=== PATIENT | male | born 1985 | race Caucasian/White ===

== ENCOUNTER 2020-09-16 08:05 | Inpatient (IN) | payer OTHER, MEDICAID ==
[2020-09-16] VITALS (12 sets, daily range): BP systolic 84–115; BP diastolic 46–88
[~2020-09-16] VITALS: Ht 190.5 cm; Wt 106.0 kg
[~2020-09-16 08:05] MED LIST: calcium chloride 100 MG/1 ML inj IV ONE; sodium bicarbonate (8.4%) 1 mEq/ml syringe ONE
[2020-09-16] MEDS ORDERED: NORepinephrine inj. 8 MG in dextrose 5%-water 242 ML IV SCH (08:20)
[2020-09-16 08:37] LABS: ABG BASE EXCESS -12.6 mmol/L (-2.0-2.0); ABG HCO3 20.9 mmol/L (22.0-26.0); ABG OXYGEN SATURATION 96.4 % (94-97); ABG PCO2 (T) 94.6 mmHg (35.0-48.0); ABG PO2 (T) 124.4 mmHg (75.0-100.0); FCOHb 0.2 % (0.0-3.9); FMetHb 0.1 % (0.0-1.5); FO2Hb 96.1 % (94-97); RESPIRATORY RATE 18 b/min; TIDAL VOLUME 450 mL; TOTAL HEMOGLOBIN 12.8 G/dl (14.0-18.0)
[2020-09-16] MEDS ORDERED: NOREPINEPHRINE BITARTRATE/D5W 250 ML IV SCH (08:40)
[2020-09-16 08:41] LABS: BASOPHILS % (AUTO) 0.5 % (0-1); EOSINOPHILS # (AUTO) 0.1 X10'3 (0-0.9); EOSINOPHILS % (AUTO) 1.5 % (0-6); HEMATOCRIT 37.6 % (42.0-52.0); HEMOGLOBIN 12.5 g/dl (14.0-17.9); LYMPHOCYTES # (AUTO) 2.7 X10'3 (1.1-4.8); MEAN CORPUSCULAR HEMOGLOBIN 32.2 PG (27.0-31.0); MEAN CORPUSCULAR HGB CONC 33.1 g/dL (33.0-36.5); MEAN CORPUSCULAR VOLUME 97.1 FL (78-98); MEAN PLATELET VOLUME 6.4 FL (7.4-10.4); MONOCYTES # (AUTO) 0.3 X10'3 (0-0.9); MONOCYTES % (AUTO) 5.2 % (2-12); NEUTROPHILS # (AUTO) 2.9 X10'3 (1.8-7.7); NEUTROPHILS % (AUTO) 47.8 % (42-75); PLATELET COUNT 367 X10'3 (140-440); RED BLOOD COUNT 3.87 X10'6 (4.70-6.10); RED CELL DISTRIBUTION WIDTH 13.7 % (11.5-14.5)
[2020-09-16 09:07] LABS: ALANINE AMINOTRANSFERASE 77 U/L (12-78); ALBUMIN 3.2 G/DL (3.4-5.0); ALBUMIN/GLOBULIN RATIO 1.1 (1.1-1.5); ALKALINE PHOSPHATASE 51 IU/L (46-116); ANION GAP 13 (8-16); ASPARTATE AMINO TRANSFERASE 76 U/L (10-37); BILIRUBIN,TOTAL 0.3 MG/DL (0.1-1.0); BLOOD UREA NITROGEN 14 MG/DL (7-18); BUN/CREATININE RATIO 6.8 (5.4-32.0); CALCIUM 8.3 MG/DL (8.5-10.1); CHLORIDE 104 MMOL/L (99-107); CREATININE 2.07 MG/DL (0.60-1.10); MAGNESIUM 3.1 MG/DL (1.5-2.4); POTASSIUM 3.6 MMOL/L (3.5-5.1); SODIUM 144 MMOL/L (135-145); TOTAL CARBON DIOXIDE 27.2 MMOL/L (24-32); TOTAL PROTEIN 6.1 G/DL (6.4-8.2); eGFR 37 ML/MIN
[2020-09-16 09:08] LABS: GLUCOSE 453 MG/DL (70-104)
[2020-09-16] MEDS ORDERED: normal saline 1000ML IV soln IVB ONE ×2 (09:15→09:25)
[2020-09-16] MEDS ORDERED: magnesium hydroxide 30ml (MOM) UD suspension PO PRN (09:25)
[2020-09-16] MEDS ORDERED: midazolam 100mg in NS 100ml 100 ML IV PRN (09:25)
[2020-09-16] MEDS ORDERED: magnesium 4gm in 100ml NS 100 ML IV PRN (09:25)
[2020-09-16] MEDS ORDERED: ipratropium/albuterol 3ml nebule NEB PRN (09:25)
[2020-09-16] MEDS ORDERED: FENTANYL-0.9 % NACL/PF 100 ML IV PRN (09:25)
[2020-09-16] MEDS ORDERED: potassium Cl 20 mEq SR tablet PO PRN ×2 (09:25)
[2020-09-16] MEDS ORDERED: sodium phosphate inj. 30 MMOL in dextrose 5%-water 250 ML IV PRN (09:25)
[2020-09-16] MEDS ORDERED: magnesium Cl slow-release 64mg tablet PO PRN (09:25)
[2020-09-16] MEDS ORDERED: magnesium 2GM in 50ml NS 50 ML IV PRN (09:25)
[2020-09-16] MEDS ORDERED: LIDOcaine 2% 10ml TOPICAL JELLY (Urojet) TP ONE ×2 (09:25→12:55)
[2020-09-16] MEDS ORDERED: acetaminophen 325mg tablet PO PRN ×2 (09:25)
[2020-09-16] MEDS ORDERED: Neutra Phos packet PO PRN (09:25)
[2020-09-16] MEDS ORDERED: ondansetron/PF 4mg/2ml inj IV PRN (09:25)
[2020-09-16] MEDS: calcium acetate 667mg (PhosLO) capsule PO SCH ×3 (09:27→18:00)
[2020-09-16] MEDS ORDERED: LORazepam 2 mg/ml vial IV ONE (09:30)
--- NOTE | 2020-09-16 09:40 | NUR ---
Propofol 100mg IVP given by Dr Angel.
[2020-09-16 09:45] LABS: CREATINE KINASE 417 U/L (39-308)
[2020-09-16] MEDS: propofol 1000mg/100ml bottle 100 ML IV SCH ×2 (09:46→17:11)
[2020-09-16 09:48] LABS: COLOR,URINE STRAW (Yellow); GLUCOSE, URINE >=1000 mg/dl (Neg); KETONES,URINE NEGATIVE (Neg); LEUKOCYTE ESTERASE ,URINE NEGATIVE (Neg); NITRITES, URINE NEGATIVE (Neg); OCCULT BLOOD,URINE TRACE-INTACT (Neg); PROTEIN,URINE 30 mg/dl (Neg); UROBILINOGEN,URINE 0.2 E.U/dL (0.2-1.0)
[2020-09-16 09:49] LABS: CLARITY,URINE SLIGHTLY CLOUDY (Clear); UA COLLECTION TYPE FOLEY CATH
[2020-09-16 09:52] LABS: BACTERIA,URINE NONE SEEN /HPF (Neg); MUCUS STRANDS NONE SEEN /LPF (Neg); RBC,URINE NONE SEEN /HPF (0-2); SQUAMOUS EPITHELIAL CELL,UR NONE SEEN /LPF (FEW); WBC,URINE 0-4 /HPF (0-4)
[2020-09-16 09:53] LABS: SPERM MANY /HPF (NEGATIVE)
[2020-09-16] MEDS ORDERED: piperacillin/tazo 3.375gm/50ml 50 ML IV ONE (10:00)
[2020-09-16 10:04] LABS: URINE AMPHETAMINE SCREEN POSITIVE (Neg); URINE BARBITUATE SCREEN NEGATIVE (Neg); URINE BENZODIAZEPINES SCREEN NEGATIVE (Neg); URINE CANNABINOID SCREEN NEGATIVE (Neg); URINE COCAINE SCREEN NEGATIVE (Neg); URINE METHADONE SCREEN NEGATIVE (Neg); URINE OPIATE SCREEN NEGATIVE (Neg); URINE PHENCYCLIDINE SCREEN NEGATIVE (Neg)
[2020-09-16 10:09] LABS: ABG BASE EXCESS -3.5 mmol/L (-2.0-2.0); ABG HCO3 22.2 mmol/L (22.0-26.0); ABG OXYGEN SATURATION 98.8 % (94-97); ABG PCO2 (T) 42.3 mmHg (35.0-48.0); ABG PO2 (T) 151.3 mmHg (75.0-100.0); FCOHb 0.6 % (0.0-3.9); FMetHb 0.2 % (0.0-1.5); RESPIRATORY RATE 22 b/min; TIDAL VOLUME 600 mL; TOTAL HEMOGLOBIN 14.8 G/dl (14.0-18.0)
--- NOTE | 2020-09-16 10:16 | NUR ---
Pt bucking the vent, propofol increased.
[2020-09-16 10:26] LABS: AMYLASE 63 U/L (25-115); LIPASE 80 U/L (73-393)
--- NOTE | 2020-09-16 10:32 | NUR ---
Tried to call report to ICU and [facility] said that they are in the middle of rounds and she will have to figure out what nurse is taking the patient and have them call us back.
[2020-09-16] MEDS: NORepinephrine 8mg/ 250ml NS 250 ML IV SCH (10:33)
--- NOTE | 2020-09-16 10:37 | NUR ---
[facility] called back stating, "We are not ready for the patient, we will call when we are ready." When asking for an ETA, she refused to give one.
--- NOTE | 2020-09-16 10:46 | NUR ---
0807-Pt arrived to ED, ROSC acquired by EMS, no spontaneous breathing 0810-Pt intubated by Dr Angel 8.0 tube, 23 at the lip 0820-1 amp Calcium Chloride given IVP per Dr Angel, Central Line placed in right Subclavian by Dr Angel with instructions that it can be used. 0830-Arterial line placed in right groin by Dr Angel 0835-Hold the Norepinephrine per Dr Angel 0850-1 Amp of Sodium Bicarb given per Dr Angel 0900-Pt to CT with RN and RT 0915-Pt returned from CT with RN and RT
[2020-09-16] MEDS: albuterol 2.5 MG/3 ML nebule NEB SCH ×4 (11:00→23:20)
[2020-09-16] MEDS: pantoprazole 40 MG vial IV SCH (11:03)
[2020-09-16] MEDS: normal saline 1000ml 1,000 ML IV SCH ×3 (11:03→22:53)
[2020-09-16] MEDS: FENTANYL-0.9 % NACL/PF 100 ML IV PRN ×3 (12:20→22:53)
[2020-09-16] MEDS: midazolam 100mg in NS 100ml 100 ML IV PRN ×2 (12:21→20:04)
[2020-09-16] MEDS ORDERED: UNABLE TO OBTAIN (13:14)
--- NOTE | 2020-09-16 13:50 | NUR ---
upon assessment noted pt's right deviates upward and inward md informed. pt started cooling at 1330
[2020-09-16 14:34] LABS: PARTIAL THROMBOPLASTIN TIME 24 SECONDS (22-32)
[2020-09-16 14:47] LABS: ALBUMIN 3.2 G/DL (3.4-5.0); ANION GAP 9 (8-16); BLOOD UREA NITROGEN 14 MG/DL (7-18); BUN/CREATININE RATIO 12.2 (5.4-32.0); CALCIUM 8.1 MG/DL (8.5-10.1); CHLORIDE 111 MMOL/L (99-107); CREATINE KINASE 463 U/L (39-308); CREATININE 1.15 MG/DL (0.60-1.10); GLUCOSE 135 MG/DL (70-104); POTASSIUM 3.4 MMOL/L (3.5-5.1); SODIUM 146 MMOL/L (135-145); TOTAL CARBON DIOXIDE 26.5 MMOL/L (24-32); eGFR 72 ML/MIN
[2020-09-16 15:25] LABS: ABG HCO3 21.4 mmol/L (22.0-26.0); ABG OXYGEN SATURATION 94.4 % (94-97); ABG PCO2 (T) 39.2 mmHg (35.0-48.0); ABG PO2 (T) 62.1 mmHg (75.0-100.0); FCOHb 0.2 % (0.0-3.9); FMetHb 0.2 % (0.0-1.5); PATIENT TEMPERATURE 33.9; PEEP 5 cm H2O; RESPIRATORY RATE 18 b/min; TIDAL VOLUME 600 mL; TOTAL HEMOGLOBIN 15.9 G/dl (14.0-18.0)
--- NOTE | 2020-09-16 16:01 | NUR ---
noted both eyes now deviat to the left and upward, decorticate posturing becoming more frequent. orders received
--- NOTE | 2020-09-16 16:14 | NUR ---
DR. Nicholson called back with more orders- EEG ordered
[2020-09-16] MEDS: levetiracetam-NS 1000mg/100ml 100 ML IV SCH (17:45)
--- NOTE | 2020-09-16 18:20 | NUR ---
Patient in room ICU 2044. I have received report from SHARITA Montes and had the opportunity to ask questions and assume patient care. Patient is cooled to a temp of 32.5. Patient appears to have intermittent seizure activity, decorticate posturing noted with shivering like activity. Patient is ventilated with FiO2 90% AC/ PRVC. Patient with sedation infusing per MD order see IV spreadsheet. Addendum: 09/16/20 at 1858 by Eusebia Manuel RN Patient pupils are pinpoint with upward fixed gaze to the left.
--- NOTE | 2020-09-16 18:30 | NUR ---
fingerprint technician here to set up for 24 hour EEG.
--- NOTE | 2020-09-16 19:13 | NUR ---
Patient temp 32.1 After Patient covered with blanket and sheet, temperature of cooling machine increased. TTM cooling water machine turned off.
[2020-09-16] MEDS ORDERED: meperidine/PF 50mg/ml syringe IV PRN (19:30)
--- NOTE | 2020-09-16 19:40 | NUR ---
Phone call to Dr. Gonzalez re: patient shivering after blanket and sheet applied. Current sedation reviewed with . to place orders for Demerol and Buspar. Order for Nimbex only if Buspar and Demerol not effective.
[2020-09-16] MEDS ORDERED: meperidine/PF 25mg/ml syringe ONE (19:51)
[2020-09-16] MEDS: docusate sod 100mg capsule PO SCH (20:00)
[2020-09-16] MEDS: busPIRone 15mg tablet PO SCH (20:02)
[2020-09-16 20:42] LABS: ABG BASE EXCESS -2.2 mmol/L (-2.0-2.0); ABG HCO3 22.3 mmol/L (22.0-26.0); ABG OXYGEN SATURATION 99.5 % (94-97); ABG PCO2 (T) 29.8 mmHg (35.0-48.0); ABG PO2 (T) 262.2 mmHg (75.0-100.0); FCOHb 0.3 % (0.0-3.9); FMetHb 0.3 % (0.0-1.5); FO2Hb 98.9 % (94-97); PATIENT TEMPERATURE 31.5; PEEP 5 cm H2O; RESPIRATORY RATE 18 b/min; TIDAL VOLUME 600 mL; TOTAL HEMOGLOBIN 15.9 G/dl (14.0-18.0)
[2020-09-16 20:44] LABS: OXYGEN SATURATION (MIXED VEN) 84.2 % (60-80); PO2 MIXED VENOUS (TEMP COR) 32.5 mmHg (35-46)
[2020-09-16 21:05] LABS: BASOPHILS % (AUTO) 0.2 % (0-1); EOSINOPHILS % (AUTO) 0 % (0-6); HEMATOCRIT 46.3 % (42.0-52.0); HEMOGLOBIN 15.5 g/dl (14.0-17.9); LYMPHOCYTES # (AUTO) 0.2 X10'3 (1.1-4.8); LYMPHOCYTES % (AUTO) 3.4 % (21-51); MEAN CORPUSCULAR HEMOGLOBIN 31.5 PG (27.0-31.0); MEAN CORPUSCULAR HGB CONC 33.5 g/dL (33.0-36.5); MEAN PLATELET VOLUME 6.3 FL (7.4-10.4); MONOCYTES # (AUTO) 0.3 X10'3 (0-0.9); MONOCYTES % (AUTO) 3.8 % (2-12); NEUTROPHILS # (AUTO) 6.8 X10'3 (1.8-7.7); NEUTROPHILS % (AUTO) 92.6 % (42-75); PLATELET COUNT 286 X10'3 (140-440); RED BLOOD COUNT 4.93 X10'6 (4.70-6.10); RED CELL DISTRIBUTION WIDTH 13.5 % (11.5-14.5); WHITE BLOOD COUNT 7.3 X10'3 (4.5-11.0)
[2020-09-16] MEDS: heparin, porcine 5000 units/ml vial SQ SCH (21:15)
[2020-09-16 21:51] LABS: ALBUMIN 3.2 G/DL (3.4-5.0); ANION GAP 8 (8-16); BLOOD UREA NITROGEN 13 MG/DL (7-18); BUN/CREATININE RATIO 13.8 (5.4-32.0); CALCIUM 8.5 MG/DL (8.5-10.1); CHLORIDE 112 MMOL/L (99-107); CREATININE 0.94 MG/DL (0.60-1.10); GLUCOSE 122 MG/DL (70-104); MAGNESIUM 1.9 MG/DL (1.5-2.4); PHOSPHORUS 2.5 MG/DL (2.3-4.5); POTASSIUM 3.5 MMOL/L (3.5-5.1); SODIUM 148 MMOL/L (135-145); TOTAL CARBON DIOXIDE 27.6 MMOL/L (24-32); eGFR > 90 ML/MIN
--- NOTE | 2020-09-16 23:01 | NUR ---
Dr. Gonzalez called regarding troponin trending up. 12 hour troponin: 0.10. Order to re-draw Troponin with morning labs.
[2020-09-17] VITALS (24 sets, daily range): BP systolic 90–148; BP diastolic 50–83
--- NOTE | 2020-09-17 00:50 | NUR ---
Core temp 32.9. Cooling blanket turned back on.
[2020-09-17] MEDS: midazolam 100mg in NS 100ml 100 ML IV PRN ×6 (00:55→21:30)
[2020-09-17] MEDS: propofol 1000mg/100ml bottle 100 ML IV SCH ×3 (01:30→16:29)
--- NOTE | 2020-09-17 01:30 | NUR ---
Patient with brief myoclonic muscle twitching episodes noted with increased frequency after tactile stimuli.
--- NOTE | 2020-09-17 01:57 | NUR ---
Dr. Gonzalez called for patients increase in Myoclonic muscle jerking episodes. These events last approximately 15-20 seconds in duration and are occurring approximately every 1 to 2 minutes. Reviewed patients current medication and rates. No new orders at this time.
[2020-09-17] MEDS: NORepinephrine 8mg/ 250ml NS 250 ML IV SCH ×2 (02:51→05:14)
[2020-09-17] MEDS: albuterol 2.5 MG/3 ML nebule NEB SCH ×6 (02:55→23:02)
[2020-09-17 03:11] LABS: ABG BASE EXCESS -2.2 mmol/L (-2.0-2.0); ABG HCO3 22.4 mmol/L (22.0-26.0); ABG OXYGEN SATURATION 98.6 % (94-97); ABG PCO2 (T) 31.1 mmHg (35.0-48.0); ABG PO2 (T) 107.6 mmHg (75.0-100.0); FCOHb 0.3 % (0.0-3.9); FMetHb 0.2 % (0.0-1.5); FO2Hb 98.1 % (94-97); PATIENT TEMPERATURE 32.4; PEEP 5 cm H2O; RESPIRATORY RATE 16 b/min; TIDAL VOLUME 600 mL; TOTAL HEMOGLOBIN 15.1 G/dl (14.0-18.0)
[2020-09-17 03:13] LABS: BASOPHILS % (AUTO) 0.2 % (0-1); EOSINOPHILS % (AUTO) 0 % (0-6); HEMATOCRIT 43.6 % (42.0-52.0); HEMOGLOBIN 14.6 g/dl (14.0-17.9); LYMPHOCYTES # (AUTO) 0.5 X10'3 (1.1-4.8); LYMPHOCYTES % (AUTO) 7.5 % (21-51); MEAN CORPUSCULAR HEMOGLOBIN 31.3 PG (27.0-31.0); MEAN CORPUSCULAR HGB CONC 33.5 g/dL (33.0-36.5); MEAN CORPUSCULAR VOLUME 93.6 FL (78-98); MEAN PLATELET VOLUME 6.3 FL (7.4-10.4); MONOCYTES # (AUTO) 0.2 X10'3 (0-0.9); MONOCYTES % (AUTO) 2.9 % (2-12); NEUTROPHILS % (AUTO) 89.4 % (42-75); PLATELET COUNT 287 X10'3 (140-440); RED BLOOD COUNT 4.65 X10'6 (4.70-6.10); RED CELL DISTRIBUTION WIDTH 13.4 % (11.5-14.5); WHITE BLOOD COUNT 6.7 X10'3 (4.5-11.0)
[2020-09-17 03:14] LABS: OXYGEN SATURATION (MIXED VEN) 79.8 % (60-80); PO2 MIXED VENOUS (TEMP COR) 31.4 mmHg (35-46)
[2020-09-17 03:54] LABS: ALANINE AMINOTRANSFERASE 75 U/L (12-78); ALBUMIN 2.8 G/DL (3.4-5.0); ALKALINE PHOSPHATASE 45 IU/L (46-116); ANION GAP 6 (8-16); ASPARTATE AMINO TRANSFERASE 68 U/L (10-37); BILIRUBIN,TOTAL 0.5 MG/DL (0.1-1.0); BLOOD UREA NITROGEN 12 MG/DL (7-18); BUN/CREATININE RATIO 13.6 (5.4-32.0); CALCIUM 7.8 MG/DL (8.5-10.1); CHLORIDE 113 MMOL/L (99-107); CKMB RELATIVE INDEX 3.6 RATIO (0-2.5); CREATINE KINASE 402 U/L (39-308); CREATININE 0.88 MG/DL (0.60-1.10); GLUCOSE 103 MG/DL (70-104); MAGNESIUM 1.9 MG/DL (1.5-2.4); PHOSPHORUS 3.3 MG/DL (2.3-4.5); POTASSIUM 3.2 MMOL/L (3.5-5.1); SODIUM 146 MMOL/L (135-145); TOTAL CARBON DIOXIDE 26.7 MMOL/L (24-32); TOTAL PROTEIN 5.5 G/DL (6.4-8.2); TRIGLYCERIDES 25 MG/DL (20-135); TROPONIN I 0.12 NG/ML (0.0-0.05); eGFR > 90 ML/MIN
[2020-09-17 04:20] LABS: PARTIAL THROMBOPLASTIN TIME 29 SECONDS (22-32)
[2020-09-17] MEDS: FENTANYL-0.9 % NACL/PF 100 ML IV PRN ×5 (04:25→23:14)
[2020-09-17] MEDS: CISatracurium besylate inj. 100 MG in normal saline 100ml IV soln 90 ML IV PRN ×2 (04:28→20:29)
[2020-09-17] MEDS ORDERED: magnesium 2GM in 50ml NS 50 ML IV PRN (05:00)
--- NOTE | 2020-09-17 05:09 | NUR ---
Rounds with Dr. Stephens. Addressed K3.2, Lactic acid 2.0 and Trop 0.12. update on patient condition. She will place orders for K replacement. No additional labs for lactic or troponin outside of current protocol needed. Per Dr. Angelo carvalho to start Levophed with a MAP of 66 for decreased urine output.
[2020-09-17] MEDS: potassium Cl 40MEQ/250ML bag 270 ML IV PRN ×3 (05:25→16:30)
[2020-09-17] MEDS: normal saline 1000ml 1,000 ML IV SCH ×3 (05:32→18:45)
--- NOTE | 2020-09-17 06:09 | NUR ---
Temp 31.9 Cooling machine turned off.
--- NOTE | 2020-09-17 06:18 | NUR ---
Problems reprioritized. Patient report given, questions answered & plan of care reviewed with SHARITA Andrade.
--- NOTE | 2020-09-17 06:30 | NUR ---
Received report from SHARITA Wood
[2020-09-17] MEDS: calcium acetate 667mg (PhosLO) capsule PO SCH ×3 (08:00→17:04)
[2020-09-17] MEDS: docusate sod 100mg capsule PO SCH ×2 (08:00→20:00)
[2020-09-17] MEDS: K and/or MAG REPLACEMENT MC SCH (08:00)
[2020-09-17] MEDS: heparin, porcine 5000 units/ml vial SQ SCH ×2 (08:08→20:16)
[2020-09-17] MEDS: busPIRone 15mg tablet PO SCH ×2 (08:08→13:59)
[2020-09-17] MEDS: pantoprazole 40 MG vial IV SCH (08:08)
[2020-09-17] MEDS: levetiracetam-NS 1000mg/100ml 100 ML IV SCH ×2 (08:09→20:15)
[2020-09-17 09:22] LABS: BASOPHILS % (AUTO) 0.3 % (0-1); EOSINOPHILS % (AUTO) 0.2 % (0-6); LYMPHOCYTES # (AUTO) 0.7 X10'3 (1.1-4.8); LYMPHOCYTES % (AUTO) 9.9 % (21-51); MEAN CORPUSCULAR HEMOGLOBIN 31.7 PG (27.0-31.0); MEAN CORPUSCULAR HGB CONC 34.2 g/dL (33.0-36.5); MEAN CORPUSCULAR VOLUME 92.8 FL (78-98); MEAN PLATELET VOLUME 5.9 FL (7.4-10.4); MONOCYTES # (AUTO) 0.2 X10'3 (0-0.9); MONOCYTES % (AUTO) 2.1 % (2-12); NEUTROPHILS # (AUTO) 6.5 X10'3 (1.8-7.7); NEUTROPHILS % (AUTO) 87.5 % (42-75); PLATELET COUNT 250 X10'3 (140-440); RED BLOOD COUNT 4.42 X10'6 (4.70-6.10); RED CELL DISTRIBUTION WIDTH 13.3 % (11.5-14.5); WHITE BLOOD COUNT 7.4 X10'3 (4.5-11.0)
[2020-09-17 09:27] LABS: ABG BASE EXCESS -1.6 mmol/L (-2.0-2.0); ABG HCO3 23.7 mmol/L (22.0-26.0); ABG OXYGEN SATURATION 98.5 % (94-97); ABG PCO2 (T) 33.9 mmHg (35.0-48.0); ABG PO2 (T) 110.9 mmHg (75.0-100.0); FCOHb 0.3 % (0.0-3.9); FMetHb 0.3 % (0.0-1.5); FO2Hb 97.9 % (94-97); PATIENT TEMPERATURE 32.1; PEEP 5 cm H2O; RESPIRATORY RATE 16 b/min; TIDAL VOLUME 600 mL; TOTAL HEMOGLOBIN 14.5 G/dl (14.0-18.0)
[2020-09-17 09:35] LABS: ALBUMIN 2.5 G/DL (3.4-5.0); ANION GAP 8 (8-16); BLOOD UREA NITROGEN 12 MG/DL (7-18); BUN/CREATININE RATIO 17.1 (5.4-32.0); CALCIUM 7.6 MG/DL (8.5-10.1); CHLORIDE 114 MMOL/L (99-107); GLUCOSE 119 MG/DL (70-104); MAGNESIUM 1.8 MG/DL (1.5-2.4); PHOSPHORUS 2.5 MG/DL (2.3-4.5); POTASSIUM 3.2 MMOL/L (3.5-5.1); SODIUM 147 MMOL/L (135-145); TOTAL CARBON DIOXIDE 24.6 MMOL/L (24-32); eGFR > 90 ML/MIN
--- NOTE | 2020-09-17 10:04 | NUR ---
Initial: Pt presented to the ER via EMS post intubation for AMS. 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 Per RN notes cooling machine turned off this morning, current temp is 32 celsius per loan documentation specialist. Pt remains intubated and sedated at this time with an NG tube in place. No TF consult. See below for TF recommendations for if prolonged intubation and to receive nutrition support. Pt initially with an elevated BG of 453 mg/dL on admit, currently 119 mg/dL with A1c 5.6%. Phos 12.0 mg/dL on admit, now WNL. Routine phos binder available in med list however currently being held d/t NPO status. Noted that pt with a low Hardik of 11, no edema or wounds per physical assessment. No documented LBM, routine bowel care available. Will continue to follow closely and make recommendations as appropriate. Recommendations: 1) IF TF, continuous Vital AF with goal rate of 75 mL/hr. To begin at 35 mL/hr and advance by 20 mL Q8H as tolerated to goal rate 2) IF TF, additional 115 mL water flush Q4H; monitor serum Na and renal labs and adjust recommendations as appropriate 3) IF TF, prealbumin q Saturday/, daily weights 4) Routine bowel care Addendum: 09/17/20 at [address] Amended: Links added.
[2020-09-17] MEDS: mineral oil/petrolatum ophthal oint EACHEYE SCH ×2 (14:00→20:15)
[2020-09-17 15:24] LABS: BASOPHILS % (AUTO) 0.4 % (0-1); EOSINOPHILS % (AUTO) 0.7 % (0-6); HEMATOCRIT 40.9 % (42.0-52.0); HEMOGLOBIN 13.9 g/dl (14.0-17.9); LYMPHOCYTES # (AUTO) 0.9 X10'3 (1.1-4.8); LYMPHOCYTES % (AUTO) 13.7 % (21-51); MEAN CORPUSCULAR HEMOGLOBIN 31.7 PG (27.0-31.0); MEAN CORPUSCULAR VOLUME 93.4 FL (78-98); MEAN PLATELET VOLUME 6.2 FL (7.4-10.4); MONOCYTES # (AUTO) 0.1 X10'3 (0-0.9); MONOCYTES % (AUTO) 2.2 % (2-12); NEUTROPHILS # (AUTO) 5.5 X10'3 (1.8-7.7); PLATELET COUNT 243 X10'3 (140-440); RED BLOOD COUNT 4.38 X10'6 (4.70-6.10); RED CELL DISTRIBUTION WIDTH 13.8 % (11.5-14.5); WHITE BLOOD COUNT 6.7 X10'3 (4.5-11.0)
[2020-09-17 15:42] LABS: ABG BASE EXCESS -3.1 mmol/L (-2.0-2.0); ABG HCO3 21.3 mmol/L (22.0-26.0); ABG OXYGEN SATURATION 97.1 % (94-97); ABG PCO2 (T) 28.2 mmHg (35.0-48.0); ABG PO2 (T) 66.5 mmHg (75.0-100.0); FCOHb 0.3 % (0.0-3.9); FMetHb 0.3 % (0.0-1.5); FO2Hb 96.5 % (94-97); PATIENT TEMPERATURE 31.2; PEEP 5 cm H2O; RESPIRATORY RATE 14 b/min; TIDAL VOLUME 600 mL; TOTAL HEMOGLOBIN 14.5 G/dl (14.0-18.0)
[2020-09-17 15:47] LABS: ALANINE AMINOTRANSFERASE 79 U/L (12-78); ALBUMIN 2.5 G/DL (3.4-5.0); ALKALINE PHOSPHATASE 44 IU/L (46-116); ANION GAP 11 (8-16); ASPARTATE AMINO TRANSFERASE 83 U/L (10-37); BILIRUBIN,TOTAL 0.2 MG/DL (0.1-1.0); BLOOD UREA NITROGEN 12 MG/DL (7-18); BUN/CREATININE RATIO 18.2 (5.4-32.0); CHLORIDE 114 MMOL/L (99-107); CKMB RELATIVE INDEX 4.9 RATIO (0-2.5); CREATINE KINASE 397 U/L (39-308); CREATININE 0.66 MG/DL (0.60-1.10); GLUCOSE 111 MG/DL (70-104); MAGNESIUM 2.1 MG/DL (1.5-2.4); PHOSPHORUS 1.6 MG/DL (2.3-4.5); POTASSIUM 3.3 MMOL/L (3.5-5.1); SODIUM 148 MMOL/L (135-145); TOTAL CARBON DIOXIDE 23.4 MMOL/L (24-32); TOTAL PROTEIN 5.1 G/DL (6.4-8.2); TROPONIN I 0.09 NG/ML (0.0-0.05); eGFR > 90 ML/MIN
[2020-09-17] MEDS: sodium phosphate inj. 15 MMOL in dextrose 5%-water 250 ML IV PRN (16:28)
--- NOTE | 2020-09-17 18:12 | NUR ---
Cooling machine turned off at approximately 1345- pt. temperature 32.0 C.
--- NOTE | 2020-09-17 18:13 | NUR ---
Report given to SHARITA Wood
--- NOTE | 2020-09-17 18:34 | NUR ---
Patient in room ICU 2044. I have received report from SHARITA Andrade and had the opportunity to ask questions and assume patient care. Patient is rewarming current temp 32.1. Patient is sedated with paralytic infusing. Patient also has continuous EEG monitor in place.
[2020-09-17] MEDS ORDERED: busPIRone 15mg tablet NG SCH (18:42)
[2020-09-17] MEDS ORDERED: acetaminophen 325mg tablet NG PRN ×2 (18:42)
[2020-09-17] MEDS ORDERED: Neutra Phos packet NG PRN (18:44)
[2020-09-17] MEDS ORDERED: POTASSIUM BICARB 20meq eff tab 20 MEQ TABLET.EFF NG PRN ×2 (18:45)
--- NOTE | 2020-09-17 19:55 | NUR ---
Dr. Cook called. Update on patient condition. NA 149 with normal saline running at 150ml/hr. Zero urine output for last hour, patient bladder scan with zero ml in bladder. MD will place orders for fluid change and possible bolus after he reviews chart and orders. Also address order for Buspar, per MD continue Buspar with Nimbex.
[2020-09-17] MEDS ORDERED: ringers solution, lacted 1,000 ML IV ONE (20:15)
[2020-09-17 20:32] LABS: ABG BASE EXCESS -4.9 mmol/L (-2.0-2.0); ABG HCO3 22.6 mmol/L (22.0-26.0); ABG OXYGEN SATURATION 96.7 % (94-97); ABG PCO2 (T) 42.5 mmHg (35.0-48.0); ABG PO2 (T) 73.4 mmHg (75.0-100.0); FMetHb 0.3 % (0.0-1.5); FO2Hb 96.4 % (94-97); PATIENT TEMPERATURE 32.6; PEEP 5 cm H2O; RESPIRATORY RATE 12 b/min; TIDAL VOLUME 600 mL; TOTAL HEMOGLOBIN 14.5 G/dl (14.0-18.0)
[2020-09-17] MEDS: ringers solution, lacted 1,000 ML IV SCH (20:38)
--- NOTE | 2020-09-17 20:55 | NUR ---
certified veterinary technician at bedside
[2020-09-17 22:04] LABS: ALANINE AMINOTRANSFERASE 55 U/L (12-78); ALBUMIN 2.3 G/DL (3.4-5.0); ALBUMIN/GLOBULIN RATIO 0.9 (1.1-1.5); ALKALINE PHOSPHATASE 43 IU/L (46-116); ANION GAP 11 (8-16); ASPARTATE AMINO TRANSFERASE 82 U/L (10-37); BILIRUBIN,TOTAL 0.2 MG/DL (0.1-1.0); BLOOD UREA NITROGEN 11 MG/DL (7-18); BUN/CREATININE RATIO 14.5 (5.4-32.0); CALCIUM 7.5 MG/DL (8.5-10.1); CHLORIDE 114 MMOL/L (99-107); CKMB RELATIVE INDEX 4.7 RATIO (0-2.5); CREATINE KINASE 397 U/L (39-308); CREATININE 0.76 MG/DL (0.60-1.10); GLUCOSE 119 MG/DL (70-104); MAGNESIUM 1.7 MG/DL (1.5-2.4); PHOSPHORUS 3.1 MG/DL (2.3-4.5); POTASSIUM 3.5 MMOL/L (3.5-5.1); SODIUM 148 MMOL/L (135-145); TOTAL CARBON DIOXIDE 23.2 MMOL/L (24-32); TOTAL PROTEIN 4.9 G/DL (6.4-8.2); TROPONIN I 0.07 NG/ML (0.0-0.05); eGFR > 90 ML/MIN
[2020-09-18] VITALS (22 sets, daily range): BP systolic 86–135; BP diastolic 50–79
--- NOTE | 2020-09-18 | NUR ---
Patient continues to passively rewarm. Myoclonic muscle movements noted. EEG continues. Paralytic turned down. Pupils are equal and not reactive at 2mm.
[2020-09-18] MEDS: ringers solution, lacted 1,000 ML IV SCH ×4 (01:07→22:55)
[2020-09-18] MEDS: mineral oil/petrolatum ophthal oint EACHEYE SCH ×5 (02:07→20:56)
[2020-09-18] MEDS: midazolam 100mg in NS 100ml 100 ML IV PRN ×5 (02:08→21:13)
[2020-09-18] MEDS: propofol 1000mg/100ml bottle 100 ML IV SCH ×6 (02:08→22:56)
[2020-09-18] MEDS: albuterol 2.5 MG/3 ML nebule NEB SCH ×6 (02:46→22:49)
[2020-09-18 03:01] LABS: ABG BASE EXCESS -3.2 mmol/L (-2.0-2.0); ABG HCO3 23.5 mmol/L (22.0-26.0); ABG OXYGEN SATURATION 96.8 % (94-97); ABG PCO2 (T) 43.3 mmHg (35.0-48.0); ABG PO2 (T) 80.2 mmHg (75.0-100.0); FCOHb 0.3 % (0.0-3.9); FMetHb 0.2 % (0.0-1.5); FO2Hb 96.3 % (94-97); PATIENT TEMPERATURE 34.4; PEEP 5 cm H2O; RESPIRATORY RATE 14 b/min; TIDAL VOLUME 600 mL; TOTAL HEMOGLOBIN 13.7 G/dl (14.0-18.0)
[2020-09-18 03:07] LABS: BASOPHILS % (AUTO) 0.3 % (0-1); EOSINOPHILS # (AUTO) 0.1 X10'3 (0-0.9); EOSINOPHILS % (AUTO) 1.2 % (0-6); HEMATOCRIT 39.6 % (42.0-52.0); HEMOGLOBIN 13.3 g/dl (14.0-17.9); LYMPHOCYTES # (AUTO) 0.7 X10'3 (1.1-4.8); LYMPHOCYTES % (AUTO) 9.4 % (21-51); MEAN CORPUSCULAR HEMOGLOBIN 31.6 PG (27.0-31.0); MEAN CORPUSCULAR HGB CONC 33.6 g/dL (33.0-36.5); MEAN CORPUSCULAR VOLUME 94.2 FL (78-98); MEAN PLATELET VOLUME 6.3 FL (7.4-10.4); MONOCYTES # (AUTO) 0.1 X10'3 (0-0.9); MONOCYTES % (AUTO) 1.8 % (2-12); NEUTROPHILS # (AUTO) 6.9 X10'3 (1.8-7.7); NEUTROPHILS % (AUTO) 87.3 % (42-75); PLATELET COUNT 239 X10'3 (140-440); RED BLOOD COUNT 4.21 X10'6 (4.70-6.10); RED CELL DISTRIBUTION WIDTH 14.1 % (11.5-14.5); WHITE BLOOD COUNT 7.9 X10'3 (4.5-11.0)
[2020-09-18 03:19] LABS: PARTIAL THROMBOPLASTIN TIME 33 SECONDS (22-32)
[2020-09-18 03:35] LABS: ANION GAP 8 (8-16); BILIRUBIN,TOTAL 0.2 MG/DL (0.1-1.0); BLOOD UREA NITROGEN 10 MG/DL (7-18); BUN/CREATININE RATIO 14.5 (5.4-32.0); CALCIUM 8.1 MG/DL (8.5-10.1); CHLORIDE 114 MMOL/L (99-107); CREATINE KINASE 358 U/L (39-308); CREATININE 0.69 MG/DL (0.60-1.10); GLUCOSE 95 MG/DL (70-104); MAGNESIUM 1.9 MG/DL (1.5-2.4); PHOSPHORUS 3.1 MG/DL (2.3-4.5); POTASSIUM 3.6 MMOL/L (3.5-5.1); SODIUM 148 MMOL/L (135-145); TOTAL CARBON DIOXIDE 25.9 MMOL/L (24-32); eGFR > 90 ML/MIN
[2020-09-18 03:36] LABS: ALANINE AMINOTRANSFERASE 60 U/L (12-78); ALBUMIN 2.3 G/DL (3.4-5.0); ALBUMIN/GLOBULIN RATIO 0.9 (1.1-1.5); ALKALINE PHOSPHATASE 38 IU/L (46-116); ASPARTATE AMINO TRANSFERASE 95 U/L (10-37); CKMB RELATIVE INDEX 5.2 RATIO (0-2.5); TROPONIN I 0.07 NG/ML (0.0-0.05)
[2020-09-18] MEDS: FENTANYL-0.9 % NACL/PF 100 ML IV PRN ×2 (04:20→09:42)
--- NOTE | 2020-09-18 06:23 | NUR ---
Problems reprioritized. Patient report given, questions answered & plan of care reviewed with SHARITA Mccullough.
[2020-09-18] MEDS: K and/or MAG REPLACEMENT MC SCH (08:00)
[2020-09-18] MEDS ORDERED: dextrose 50%-water 50ml dispensing syringe IV ONE (08:18)
[2020-09-18] MEDS ORDERED: dextrose ORAL solution 15 GM/59 ML bottle PO PRN ×2 (08:20)
[2020-09-18] MEDS ORDERED: dextrose 50%-water 50ml dispensing syringe IV PRN ×2 (08:20)
[2020-09-18] MEDS ORDERED: bisacodyl 10mg suppository rectal RC PRN (09:25)
[2020-09-18] MEDS: pantoprazole 40 MG vial IV SCH (09:43)
[2020-09-18] MEDS: calcium acetate 667mg (PhosLO) capsule NG SCH ×3 (09:43→17:22)
[2020-09-18] MEDS: levetiracetam-NS 1000mg/100ml 100 ML IV SCH ×2 (09:43→20:56)
[2020-09-18] MEDS: heparin, porcine 5000 units/ml vial SQ SCH ×2 (09:44→20:57)
[2020-09-18] MEDS: docusate sod 100mg capsule PO SCH (10:18)
[2020-09-18 11:42] LABS: ABG BASE EXCESS -2.7 mmol/L (-2.0-2.0); ABG HCO3 22.8 mmol/L (22.0-26.0); ABG OXYGEN SATURATION 97.3 % (94-97); ABG PCO2 (T) 42.6 mmHg (35.0-48.0); ABG PO2 (T) 100.7 mmHg (75.0-100.0); FCOHb 0.3 % (0.0-3.9); FMetHb 0.4 % (0.0-1.5); FO2Hb 96.6 % (94-97); PATIENT TEMPERATURE 37.4; PEEP 5 cm H2O; RESPIRATORY RATE 14 b/min; TIDAL VOLUME 600 mL; TOTAL HEMOGLOBIN 13.3 G/dl (14.0-18.0)
[2020-09-18] MEDS: NORepinephrine 8mg/ 250ml NS 250 ML IV SCH (12:50)
--- NOTE | 2020-09-18 18:30 | NUR ---
Patient in room ICU 2044. I have received report from SHARITA Mccullough and had the opportunity to ask questions and assume patient care. Patient with cooling blanket on. This was turned off upon assumption of care. Patients temp 34.7. Warm blanket applied. Patient is unresponsive, intubated, on the ventilator FiO2 35%. Oxygen saturation 100%. continuous EEG in progress. Patient on Versed, Propofol for sedation. Levophed for blood pressure support, and LR. See IV spread sheet for current rates.
[2020-09-18] MEDS ORDERED: docusate sodium 100mg/10ml UD cup PO SCH (20:51)
--- NOTE | 2020-09-18 22:45 | NUR ---
Dr. Tena called for orders for the recommendations given by Tele neuro. Increased rate for Propofol and discontinuation of Fentanyl. Also notified of 4000ml urine output today. MD will place orders increase in fluid rate, increase in Propofol dose and discontinuation of Fentanyl. Urine Osmolarity sent to lab.
--- NOTE | 2020-09-18 23:28 | NUR ---
Vandana from [employer] called for an update on patients condition.
[2020-09-19] VITALS (23 sets, daily range): BP systolic 93–154; BP diastolic 53–86
[2020-09-19] MEDS: mineral oil/petrolatum ophthal oint EACHEYE SCH ×3 (02:49→14:30)
[2020-09-19] MEDS: midazolam 100mg in NS 100ml 100 ML IV PRN ×4 (02:56→16:14)
[2020-09-19] MEDS: ringers solution, lacted 1,000 ML IV SCH (03:01)
[2020-09-19] MEDS: propofol 1000mg/100ml bottle 100 ML IV SCH ×4 (03:04→23:51)
[2020-09-19] MEDS: albuterol 2.5 MG/3 ML nebule NEB SCH ×7 (03:04→22:50)
[2020-09-19 03:12] LABS: BASOPHILS % (AUTO) 0.3 % (0-1); EOSINOPHILS % (AUTO) 0.4 % (0-6); HEMATOCRIT 38.1 % (42.0-52.0); HEMOGLOBIN 12.8 g/dl (14.0-17.9); LYMPHOCYTES # (AUTO) 0.5 X10'3 (1.1-4.8); LYMPHOCYTES % (AUTO) 5.3 % (21-51); MEAN CORPUSCULAR HEMOGLOBIN 31.7 PG (27.0-31.0); MEAN CORPUSCULAR HGB CONC 33.7 g/dL (33.0-36.5); MEAN CORPUSCULAR VOLUME 94.3 FL (78-98); MEAN PLATELET VOLUME 6.6 FL (7.4-10.4); MONOCYTES # (AUTO) 0.1 X10'3 (0-0.9); MONOCYTES % (AUTO) 1.6 % (2-12); NEUTROPHILS # (AUTO) 8.5 X10'3 (1.8-7.7); NEUTROPHILS % (AUTO) 92.4 % (42-75); PLATELET COUNT 237 X10'3 (140-440); RED BLOOD COUNT 4.04 X10'6 (4.70-6.10); RED CELL DISTRIBUTION WIDTH 13.9 % (11.5-14.5); WHITE BLOOD COUNT 9.2 X10'3 (4.5-11.0)
[2020-09-19 03:15] LABS: ABG HCO3 26.6 mmol/L (22.0-26.0); ABG OXYGEN SATURATION 98.1 % (94-97); ABG PCO2 (T) 44.9 mmHg (35.0-48.0); FCOHb 0.3 % (0.0-3.9); FMetHb 0.5 % (0.0-1.5); FO2Hb 97.3 % (94-97); PATIENT TEMPERATURE 36.2; PEEP 5 cm H2O; RESPIRATORY RATE 14 b/min; TIDAL VOLUME 600 mL; TOTAL HEMOGLOBIN 13.4 G/dl (14.0-18.0)
[2020-09-19] MEDS: NORepinephrine 8mg/ 250ml NS 250 ML IV SCH ×2 (03:45→20:03)
[2020-09-19 04:23] LABS: PARTIAL THROMBOPLASTIN TIME 34 SECONDS (22-32)
[2020-09-19 04:47] LABS: ALANINE AMINOTRANSFERASE 46 U/L (12-78); ALBUMIN 2.2 G/DL (3.4-5.0); ALBUMIN/GLOBULIN RATIO 0.7 (1.1-1.5); ALKALINE PHOSPHATASE 57 IU/L (46-116); ANION GAP 7 (8-16); ASPARTATE AMINO TRANSFERASE 81 U/L (10-37); BILIRUBIN,TOTAL 0.3 MG/DL (0.1-1.0); BLOOD UREA NITROGEN 8 MG/DL (7-18); BUN/CREATININE RATIO 10.4 (5.4-32.0); CALCIUM 9.1 MG/DL (8.5-10.1); CHLORIDE 114 MMOL/L (99-107); CREATININE 0.77 MG/DL (0.60-1.10); GLUCOSE 101 MG/DL (70-104); PHOSPHORUS 3.6 MG/DL (2.3-4.5); SODIUM 148 MMOL/L (135-145); TOTAL CARBON DIOXIDE 27.4 MMOL/L (24-32); TOTAL PROTEIN 5.5 G/DL (6.4-8.2); eGFR > 90 ML/MIN
--- NOTE | 2020-09-19 05:30 | NUR ---
Rounds with Dr. Greer, reviewed changes in mental status. Will place orders for head CT>
--- NOTE | 2020-09-19 06:28 | NUR ---
Problems reprioritized. Patient report given, questions answered & plan of care reviewed with SHARITA Mccullough.
[2020-09-19] MEDS: heparin, porcine 5000 units/ml vial SQ SCH ×2 (07:39→19:10)
[2020-09-19] MEDS: calcium acetate 667mg (PhosLO) capsule NG SCH ×3 (07:39→19:50)
[2020-09-19] MEDS: pantoprazole 40 MG vial IV SCH (07:39)
[2020-09-19] MEDS: K and/or MAG REPLACEMENT MC SCH (08:00)
[2020-09-19] MEDS ORDERED: levoFLOXACIN-Levaquin 500mg/D5 100 ML IV ONE (08:30)
[2020-09-19] MEDS: levetiracetamNACL 1500mg/100mL 100 ML IV SCH ×2 (10:10→19:09)
[2020-09-19] MEDS: levoFLOXACIN-Levaquin 500mg/D5 100 ML IV SCH (10:10)
[2020-09-19] MEDS ORDERED: phenytoin sod 50mg/ml 2ml vial IV SCH (10:40)
[2020-09-19] MEDS: PHENYTOIN SOD IV SCH ×2 (11:55→11:56)
[2020-09-19] MEDS: NORMAL SALINE IV SCH ×2 (11:55→11:56)
[2020-09-19 12:52] LABS: ALBUMIN 2.4 G/DL (3.4-5.0); ANION GAP 8 (8-16); BLOOD UREA NITROGEN 7 MG/DL (7-18); BUN/CREATININE RATIO 9.5 (5.4-32.0); CALCIUM 8.8 MG/DL (8.5-10.1); CHLORIDE 110 MMOL/L (99-107); CREATININE 0.74 MG/DL (0.60-1.10); GLUCOSE 94 MG/DL (70-104); PHENYTOIN (DILANTIN) < 0.5 UG/ML (10.0-20.0); POTASSIUM 3.8 MMOL/L (3.5-5.1); SODIUM 146 MMOL/L (135-145); eGFR > 90 ML/MIN
--- NOTE | 2020-09-19 13:22 | NUR ---
TF consult: Pt continuing to have seizures, to receive IV dilantin per MD. Pt continues on vent and sedated with propofol at 29.448 ml/hr (777 kcal/day). TF to start today per co founder, see recs below. No BM documented, receiving routine bowel care. Will continue to monitor closely Recommendations: 1) Continuous Vital High Protein with goal rate of 90 mL/hr. To provide 2160 ml total volume, 2160 kcal, 189 g protein and 1814 ml water. 2) Additional 150 mL water flush Q4H; monitor serum Na and renal labs and adjust recommendations as appropriate 3) Prealbumin q Saturday/, daily weights 4) Routine bowel care Addendum: 09/19/20 at [address] Amended: Links added. Addendum: 09/19/20 at [address]mael Durán RD RD agrees w/ above procurement intern note. Addendum: 09/19/20 at [address] Durán RD *Recommendations: 1) Continuous TF using Vital High Protein with goal rate of 90 mL/hr. To provide 2160 ml total volume, 2160 kcal, 189 g protein and 1814 ml water.
[2020-09-19] MEDS ORDERED: dextrose ORAL solution 15 GM/59 ML bottle NG PRN ×2 (15:45→15:46)
[2020-09-19] MEDS ORDERED: acetaminophen 325mg/10.15ml oral unit dose solution NG PRN ×2 (15:46)
[2020-09-19] MEDS ORDERED: magnesium hydroxide 30ml (MOM) UD suspension NG PRN (15:47)
--- NOTE | 2020-09-19 16:01 | NUR ---
mud jack nozzle worker contacted sariah and forwarded call to me. I updated him on tala's condition. He stated, they expected this day to come. Sariah stated he will attempt to notify patients mother, they have not been together in approx. 20 years. Sariah lives in [place].
[2020-09-19] MEDS: phenytoin sod 50mg/ml 2ml vial IV SCH ×2 (16:14→23:43)
--- NOTE | 2020-09-19 17:06 | NUR ---
Spoke with mother Julia Fortune phone [phone] and updated her on son's condition. She identified son by two tattoos on his shoulders, both stars. Mother stated she would like all of her son's organs to be donated. Will set up a zoom call in the next hour with mother and patient.
[2020-09-19] MEDS: docusate sodium 100mg/10ml UD cup NG SCH (19:10)
[2020-09-19] MEDS: lactobacillus rhamnosus 10,000 MMU CELLS/CAPSULE NG SCH (19:10)
[2020-09-19] MEDS ORDERED: albuterol 2.5 MG/3 ML nebule NEB PRN (20:10)
[2020-09-19 20:17] LABS: ABG HCO3 26.9 mmol/L (22.0-26.0); ABG PCO2 (T) 48.6 mmHg (35.0-48.0); FCOHb 0.3 % (0.0-3.9); FMetHb 0.5 % (0.0-1.5); FO2Hb 92.3 % (94-97); PATIENT TEMPERATURE 35.2; PEEP 5 cm H2O; RESPIRATORY RATE 14 b/min; TIDAL VOLUME 600 mL; TOTAL HEMOGLOBIN 14.1 G/dl (14.0-18.0)
[2020-09-20] VITALS (24 sets, daily range): BP systolic 97–168; BP diastolic 47–85
[2020-09-20] MEDS: midazolam 100mg in NS 100ml 100 ML IV PRN ×2 (00:22→08:27)
[2020-09-20] MEDS: mineral oil/petrolatum ophthal oint EACHEYE SCH ×4 (01:14→19:32)
[2020-09-20] MEDS: propofol 1000mg/100ml bottle 100 ML IV SCH ×2 (02:55→05:41)
[2020-09-20 03:11] LABS: HEMOGLOBIN 12.9 g/dl (14.0-17.9); MEAN PLATELET VOLUME 6.9 FL (7.4-10.4); WHITE BLOOD COUNT 5.8 X10'3 (4.5-11.0)
[2020-09-20 03:15] LABS: HEMATOCRIT 38.5 % (42.0-52.0); MEAN CORPUSCULAR HEMOGLOBIN 31.8 PG (27.0-31.0); MEAN CORPUSCULAR HGB CONC 33.5 g/dL (33.0-36.5); MEAN CORPUSCULAR VOLUME 94.8 FL (78-98); PLATELET COUNT 216 X10'3 (140-440); RED BLOOD COUNT 4.06 X10'6 (4.70-6.10); RED CELL DISTRIBUTION WIDTH 14.1 % (11.5-14.5)
[2020-09-20 03:18] LABS: PARTIAL THROMBOPLASTIN TIME 32 SECONDS (22-32)
[2020-09-20 03:24] LABS: ABG BASE EXCESS -0.7 mmol/L (-2.0-2.0); ABG HCO3 27.1 mmol/L (22.0-26.0); ABG OXYGEN SATURATION 93.6 % (94-97); ABG PCO2 (T) 58.1 mmHg (35.0-48.0); ABG PO2 (T) 73.7 mmHg (75.0-100.0); FCOHb 0.3 % (0.0-3.9); FMetHb 0.6 % (0.0-1.5); FO2Hb 92.8 % (94-97); PATIENT TEMPERATURE 36.8; PEEP 5 cm H2O; RESPIRATORY RATE 14 b/min; TIDAL VOLUME 600 mL; TOTAL HEMOGLOBIN 13.6 G/dl (14.0-18.0)
[2020-09-20 03:26] LABS: ALANINE AMINOTRANSFERASE 39 U/L (12-78); ALBUMIN 2.1 G/DL (3.4-5.0); ALBUMIN/GLOBULIN RATIO 0.6 (1.1-1.5); ALKALINE PHOSPHATASE 59 IU/L (46-116); ANION GAP 5 (8-16); ASPARTATE AMINO TRANSFERASE 65 U/L (10-37); BILIRUBIN,TOTAL 0.3 MG/DL (0.1-1.0); BLOOD UREA NITROGEN 10 MG/DL (7-18); BUN/CREATININE RATIO 11.1 (5.4-32.0); CALCIUM 8.7 MG/DL (8.5-10.1); CHLORIDE 112 MMOL/L (99-107); GLUCOSE 99 MG/DL (70-104); PHOSPHORUS 2.9 MG/DL (2.3-4.5); POTASSIUM 3.9 MMOL/L (3.5-5.1); PREALBUMIN 10.9 MG/DL (19-36); SODIUM 147 MMOL/L (135-145); TOTAL CARBON DIOXIDE 29.9 MMOL/L (24-32); TOTAL PROTEIN 5.6 G/DL (6.4-8.2); eGFR > 90 ML/MIN
[2020-09-20 04:39] LABS: TOTAL CELLS COUNTED 100
[2020-09-20 04:40] LABS: PLATELET ESTIMATE NORMAL
[2020-09-20 04:41] LABS: BURR CELLS 1+
--- NOTE | 2020-09-20 06:30 | NUR ---
received report from SHARITA Dennis.
[2020-09-20] MEDS ORDERED: labetalol 20mg/4ml (5mg/ml) syringe IV ONE (06:55)
[2020-09-20] MEDS: heparin, porcine 5000 units/ml vial SQ SCH ×2 (07:29→18:36)
[2020-09-20] MEDS: albuterol 2.5 MG/3 ML nebule NEB SCH ×5 (07:32→23:15)
[2020-09-20] MEDS: lansoprazole 15mg solutab NG SCH ×2 (08:00→08:26)
[2020-09-20] MEDS: docusate sodium 100mg/10ml UD cup NG SCH ×3 (08:00→19:30)
[2020-09-20] MEDS: calcium acetate 667mg (PhosLO) capsule NG SCH ×4 (08:00→19:31)
[2020-09-20] MEDS: lactobacillus rhamnosus 10,000 MMU CELLS/CAPSULE NG SCH ×3 (08:00→19:31)
[2020-09-20] MEDS: levoFLOXACIN-Levaquin 500mg/D5 100 ML IV SCH (08:25)
[2020-09-20] MEDS: levetiracetamNACL 1500mg/100mL 100 ML IV SCH ×2 (08:26→19:30)
[2020-09-20] MEDS: phenytoin sod 50mg/ml 2ml vial IV SCH ×2 (08:30→16:22)
[2020-09-20 08:57] LABS: ALANINE AMINOTRANSFERASE 41 U/L (12-78); ALBUMIN 2.3 G/DL (3.4-5.0); ALBUMIN/GLOBULIN RATIO 0.6 (1.1-1.5); ALKALINE PHOSPHATASE 61 IU/L (46-116); ANION GAP 7 (8-16); BILIRUBIN,TOTAL 0.5 MG/DL (0.1-1.0); BLOOD UREA NITROGEN 12 MG/DL (7-18); BUN/CREATININE RATIO 12.2 (5.4-32.0); CALCIUM 8.9 MG/DL (8.5-10.1); CHLORIDE 113 MMOL/L (99-107); CREATININE 0.98 MG/DL (0.60-1.10); GLUCOSE 109 MG/DL (70-104); SODIUM 150 MMOL/L (135-145); TOTAL CARBON DIOXIDE 30.3 MMOL/L (24-32); TOTAL PROTEIN 6.2 G/DL (6.4-8.2); eGFR 87 ML/MIN
[2020-09-20] MEDS ORDERED: desmopressin 0.1mg/ml nasal spray 5ml btl NS ONE (09:10)
[2020-09-20 10:18] LABS: PHENYTOIN (DILANTIN) 7.9 UG/ML (10.0-20.0)
[2020-09-20] MEDS: vancomycin/NS 1 GM ADD-VANTAGE 250 ML X 1 DOSE IV SCH ×2 (11:14→19:30)
[2020-09-20 11:40] LABS: ASPARTATE AMINO TRANSFERASE 74 U/L (10-37)
[2020-09-20] MEDS: NORepinephrine 8mg/ 250ml NS 250 ML IV SCH (13:24)
[2020-09-20] MEDS: piperacillin/tazo 4.5gm/100ml 100 ML IV SCH ×2 (13:35→19:30)
[2020-09-20] MEDS: desmopressin 0.1mg/ml nasal spray 5ml btl NS SCH ×2 (16:22→19:31)
--- NOTE | 2020-09-20 18:37 | NUR ---
Report given to SHARITA Dennis.
[2020-09-20 20:31] LABS: PHENYTOIN (DILANTIN) 8.8 UG/ML (10.0-20.0)
[2020-09-21] VITALS (24 sets, daily range): BP systolic 91–162; BP diastolic 45–88
[2020-09-21] MEDS: phenytoin sod 50mg/ml 2ml vial IV SCH ×3 (00:29→16:00)
[2020-09-21 00:54] LABS: BASOPHILS % (AUTO) 0.5 % (0-1); EOSINOPHILS % (AUTO) 0.5 % (0-6); HEMATOCRIT 36.4 % (42.0-52.0); HEMOGLOBIN 12.4 g/dl (14.0-17.9); LYMPHOCYTES # (AUTO) 0.7 X10'3 (1.1-4.8); LYMPHOCYTES % (AUTO) 9.8 % (21-51); MEAN CORPUSCULAR HEMOGLOBIN 31.7 PG (27.0-31.0); MEAN CORPUSCULAR VOLUME 93.3 FL (78-98); MEAN PLATELET VOLUME 6.9 FL (7.4-10.4); MONOCYTES # (AUTO) 0.4 X10'3 (0-0.9); MONOCYTES % (AUTO) 5.1 % (2-12); NEUTROPHILS # (AUTO) 6.1 X10'3 (1.8-7.7); NEUTROPHILS % (AUTO) 84.1 % (42-75); PLATELET COUNT 222 X10'3 (140-440); WHITE BLOOD COUNT 7.2 X10'3 (4.5-11.0)
[2020-09-21 01:07] LABS: PARTIAL THROMBOPLASTIN TIME 33 SECONDS (22-32)
[2020-09-21 01:09] LABS: ALANINE AMINOTRANSFERASE 36 U/L (12-78); ALBUMIN 2.1 G/DL (3.4-5.0); ALBUMIN/GLOBULIN RATIO 0.6 (1.1-1.5); ALKALINE PHOSPHATASE 58 IU/L (46-116); ANION GAP 9 (8-16); ASPARTATE AMINO TRANSFERASE 81 U/L (10-37); BILIRUBIN,TOTAL 0.6 MG/DL (0.1-1.0); BLOOD UREA NITROGEN 13 MG/DL (7-18); BUN/CREATININE RATIO 15.3 (5.4-32.0); CALCIUM 8.5 MG/DL (8.5-10.1); CHLORIDE 111 MMOL/L (99-107); CREATININE 0.85 MG/DL (0.60-1.10); GLUCOSE 111 MG/DL (70-104); MAGNESIUM 2.2 MG/DL (1.5-2.4); PHOSPHORUS 4.3 MG/DL (2.3-4.5); POTASSIUM 3.4 MMOL/L (3.5-5.1); SODIUM 148 MMOL/L (135-145); TOTAL PROTEIN 5.9 G/DL (6.4-8.2); eGFR > 90 ML/MIN
[2020-09-21] MEDS: potassium Cl 40MEQ/250ML bag 270 ML IV PRN ×2 (01:49→22:57)
[2020-09-21] MEDS: mineral oil/petrolatum ophthal oint EACHEYE SCH ×6 (01:50→23:59)
[2020-09-21] MEDS: albuterol 2.5 MG/3 ML nebule NEB SCH ×4 (02:45→15:00)
[2020-09-21 02:56] LABS: ABG BASE EXCESS 1.3 mmol/L (-2.0-2.0); ABG HCO3 26.1 mmol/L (22.0-26.0); ABG OXYGEN SATURATION 98.7 % (94-97); ABG PCO2 (T) 41.3 mmHg (35.0-48.0); ABG PO2 (T) 149.8 mmHg (75.0-100.0); FCOHb 0.3 % (0.0-3.9); FMetHb 0.4 % (0.0-1.5); PATIENT TEMPERATURE 36.8; PEEP 5 cm H2O; RESPIRATORY RATE 16 b/min; TIDAL VOLUME 600 mL; TOTAL HEMOGLOBIN 12.8 G/dl (14.0-18.0)
[2020-09-21] MEDS: vancomycin/NS 1 GM ADD-VANTAGE 250 ML X 1 DOSE IV SCH ×2 (03:42→12:32)
[2020-09-21] MEDS: NORepinephrine 8mg/ 250ml NS 250 ML IV SCH ×2 (05:23→14:34)
--- NOTE | 2020-09-21 06:18 | NUR ---
Received report from SHARITA Dennis.
[2020-09-21] MEDS: levetiracetamNACL 1500mg/100mL 100 ML IV SCH ×2 (08:56→20:30)
[2020-09-21] MEDS: lansoprazole 15mg solutab NG SCH (08:56)
[2020-09-21] MEDS: docusate sodium 100mg/10ml UD cup NG SCH (08:56)
[2020-09-21] MEDS: levoFLOXACIN-Levaquin 500mg/D5 100 ML IV SCH (08:56)
[2020-09-21] MEDS: lactobacillus rhamnosus 10,000 MMU CELLS/CAPSULE NG SCH (08:56)
[2020-09-21] MEDS: calcium acetate 667mg (PhosLO) capsule NG SCH ×3 (08:56→16:19)
[2020-09-21] MEDS: piperacillin/tazo 4.5gm/100ml 100 ML IV SCH ×2 (08:56→20:32)
[2020-09-21] MEDS: desmopressin 0.1mg/ml nasal spray 5ml btl NS SCH ×3 (08:57→16:19)
[2020-09-21 09:38] LABS: POTASSIUM 3.7 MMOL/L (3.5-5.1)
[2020-09-21] MEDS ORDERED: VANCOMYCIN LEVEL IV ONE (10:30)
[2020-09-21 12:04] LABS: VANCOMYCIN,TROUGH 6.7 UG/ML (6.0-14.0)
[2020-09-21] MEDS: heparin, porcine 5000 units/ml vial SQ SCH (12:51)
[2020-09-21 13:33] LABS: ABG BASE EXCESS 1.3 mmol/L (-2.0-2.0); ABG HCO3 29.4 mmol/L (22.0-26.0); ABG OXYGEN SATURATION 99.3 % (94-97); ABG PCO2 (T) 66.8 mmHg (35.0-48.0); ABG PO2 (T) 274.4 mmHg (75.0-100.0); FCOHb 0.3 % (0.0-3.9); FMetHb 0.6 % (0.0-1.5); FO2Hb 98.4 % (94-97); PATIENT TEMPERATURE 38.4; PEEP 5 cm H2O; RESPIRATORY RATE 10 b/min; TIDAL VOLUME 600 mL; TOTAL HEMOGLOBIN 13.2 G/dl (14.0-18.0)
[2020-09-21 14:37] LABS: ABG BASE EXCESS 3.9 mmol/L (-2.0-2.0); ABG HCO3 30.4 mmol/L (22.0-26.0); ABG OXYGEN SATURATION 99.2 % (94-97); ABG PCO2 (T) 57.6 mmHg (35.0-48.0); ABG PO2 (T) 219.8 mmHg (75.0-100.0); FCOHb 0.3 % (0.0-3.9); FMetHb 0.6 % (0.0-1.5); FO2Hb 98.3 % (94-97); PATIENT TEMPERATURE 38.4; PEEP 5 cm H2O; RESPIRATORY RATE 16 b/min; TIDAL VOLUME 606 mL; TOTAL HEMOGLOBIN 12.9 G/dl (14.0-18.0)
[2020-09-21 15:06] LABS: ABG HCO3 30.2 mmol/L (22.0-26.0); ABG PCO2 (T) 50.3 mmHg (35.0-48.0); FCOHb 0.3 % (0.0-3.9); FMetHb 0.5 % (0.0-1.5); FO2Hb 98.2 % (94-97); PATIENT TEMPERATURE 38.5; PEEP 5 cm H2O; RESPIRATORY RATE 20 b/min; TIDAL VOLUME 609 mL; TOTAL HEMOGLOBIN 13.1 G/dl (14.0-18.0)
[2020-09-21 15:26] LABS: ABG BASE EXCESS 5.2 mmol/L (-2.0-2.0); ABG HCO3 29.1 mmol/L (22.0-26.0); ABG PCO2 (T) 42.6 mmHg (35.0-48.0); ABG PO2 (T) 175.3 mmHg (75.0-100.0); FCOHb 0.3 % (0.0-3.9); FMetHb 0.5 % (0.0-1.5); FO2Hb 98.2 % (94-97); PATIENT TEMPERATURE 38.4; PEEP 5 cm H2O; RESPIRATORY RATE 24 b/min; TIDAL VOLUME 601 mL; TOTAL HEMOGLOBIN 13.2 G/dl (14.0-18.0)
[2020-09-21 15:45] LABS: ABG BASE EXCESS 0.9 mmol/L (-2.0-2.0); ABG HCO3 30.7 mmol/L (22.0-26.0); ABG OXYGEN SATURATION 97.2 % (94-97); ABG PCO2 (T) 81.4 mmHg (35.0-48.0); ABG PO2 (T) 122.7 mmHg (75.0-100.0); FCOHb 0.3 % (0.0-3.9); FLOW 12 L/min; FMetHb 0.6 % (0.0-1.5); FO2Hb 96.3 % (94-97); PATIENT TEMPERATURE 38.4; TOTAL HEMOGLOBIN 13.4 G/dl (14.0-18.0)
--- NOTE | 2020-09-21 15:54 | NUR ---
PER [employer] PT PLACED ON 100%. SERIAL ABGS OBTAINED TO ACHIEVE A NORMAL CO2 BETWEEN 35-45. AFTER NORMAL ABG OBATAINED, APNEA TEST PERFORMED WITH A T-PIECE AT 100% 12LPM FOR 10 MINUTES TO OBSERVE FOR ANY SPONTANEOUS RESPIRATIONS. AFTER THAT 10 MINUTES ABG WAS OBTAINED AND THE CO2 CLIMBED BY MORE THAN 20. 'S PRONOUNCING BRAIN . PT PLACED BACK ON VENT AT 85% AND PEEP OF 10 PER [employer] FOR RECRUITMENT. PT SPO2 90% WITH VSS Addendum: 09/21/20 at 1602 by Vandana Howard RT Amended: Links added.
[2020-09-21] MEDS: phenylephrine inj 50 MG in normal saline 250ml IV soln 250 ML IV SCH ×2 (17:45→21:56)
[2020-09-21] MEDS ORDERED: methylPREDNISolone sod succ 125mg/2ml vial IV SCH (17:45)
[2020-09-21] MEDS ORDERED: Potassium Cl inj 20 MEQ in sodium chloride 0.45% 990 ML IV SCH (18:00)
[2020-09-21] MEDS ORDERED: fluconazole-Diflucan 200mg/NS 100 ML IV ONE (18:00)
--- NOTE | 2020-09-21 18:30 | NUR ---
Patient in room ICU 2044. I have received report from Lupe SHERIFF and had the opportunity to ask questions and assume patient care. Julian RN at bedside. New Lab and med orders.
[2020-09-21] MEDS ORDERED: VANCOmycin 1250MG/NS 250ml Bag 250 ML IV SCH (19:00)
[2020-09-21] MEDS: albuterol 2.5 MG/3 ML nebule NEB PRN ×2 (19:10→23:13)
[2020-09-21] MEDS: vasopressin inj. 40 UNIT in normal saline 50ml IV soln 38 ML IV SCH (19:14)
[2020-09-21] MEDS ORDERED: DEXTROSE 5% IV SCH (19:28)
[2020-09-21] MEDS ORDERED: WATER IV SCH (19:28)
[2020-09-21] MEDS ORDERED: METHYLPREDNISOLONE SOD SUCC IV SCH (19:28)
[2020-09-21] MEDS: potassium cl 20mEq in 1/2 NS 1,000 ML IV SCH (19:33)
[2020-09-21] MEDS: levoTHYROXINE sod inj. 200 MCG in normal saline 500ml IV soln 490 ML IV SCH (19:40)
[2020-09-21 20:57] LABS: BASOPHILS % (AUTO) 0.4 % (0-1); EOSINOPHILS # (AUTO) 0.1 X10'3 (0-0.9); EOSINOPHILS % (AUTO) 2.1 % (0-6); HEMATOCRIT 34.8 % (42.0-52.0); HEMOGLOBIN 11.6 g/dl (14.0-17.9); MEAN CORPUSCULAR HEMOGLOBIN 31.4 PG (27.0-31.0); MEAN CORPUSCULAR HGB CONC 33.3 g/dL (33.0-36.5); MEAN CORPUSCULAR VOLUME 94.4 FL (78-98); MEAN PLATELET VOLUME 6.6 FL (7.4-10.4); MONOCYTES # (AUTO) 0.4 X10'3 (0-0.9); MONOCYTES % (AUTO) 6.9 % (2-12); NEUTROPHILS # (AUTO) 4.4 X10'3 (1.8-7.7); NEUTROPHILS % (AUTO) 73.6 % (42-75); PLATELET COUNT 176 X10'3 (140-440); RED BLOOD COUNT 3.68 X10'6 (4.70-6.10)
[2020-09-21 21:02] LABS: COLOR,URINE YELLOW (Yellow); GLUCOSE, URINE NEGATIVE (Neg); KETONES,URINE NEGATIVE (Neg); LEUKOCYTE ESTERASE ,URINE NEGATIVE (Neg); NITRITES, URINE NEGATIVE (Neg); OCCULT BLOOD,URINE SMALL (Neg); PH,URINE >=9.0 (4.8-8.0); PROTEIN,URINE TRACE mg/dl (Neg)
[2020-09-21 21:09] LABS: PARTIAL THROMBOPLASTIN TIME 33 SECONDS (22-32)
[2020-09-21 21:18] LABS: ABG BASE EXCESS 5.6 mmol/L (-2.0-2.0); ABG HCO3 28.3 mmol/L (22.0-26.0); ABG OXYGEN SATURATION 98.2 % (94-97); ABG PCO2 (T) 33.4 mmHg (35.0-48.0); ABG PO2 (T) 106.4 mmHg (75.0-100.0); FCOHb 0.3 % (0.0-3.9); FMetHb 0.3 % (0.0-1.5); FO2Hb 97.6 % (94-97); PATIENT TEMPERATURE 36.2; PEEP 5 cm H2O; RESPIRATORY RATE 20 b/min; TIDAL VOLUME 600 mL; TOTAL HEMOGLOBIN 11.8 G/dl (14.0-18.0)
[2020-09-21 21:19] LABS: CLARITY,URINE SLIGHTLY CLOUDY (Clear); UA COLLECTION TYPE NON-SPECIFIED
[2020-09-21 21:20] LABS: WBC,URINE 0-4 /HPF (0-4)
[2020-09-21 21:21] LABS: BACTERIA,URINE FEW /HPF (Neg); MUCUS STRANDS FEW /LPF (Neg); SQUAMOUS EPITHELIAL CELL,UR NONE SEEN /LPF (FEW)
[2020-09-21 21:22] LABS: ALANINE AMINOTRANSFERASE 30 U/L (12-78); ALBUMIN 1.8 G/DL (3.4-5.0); ALBUMIN/GLOBULIN RATIO 0.5 (1.1-1.5); ALKALINE PHOSPHATASE 52 IU/L (46-116); AMYLASE 43 U/L (25-115); ANION GAP 8 (8-16); ASPARTATE AMINO TRANSFERASE 58 U/L (10-37); BILIRUBIN,DIRECT 0.2 MG/DL (0-0.3); BILIRUBIN,TOTAL 0.5 MG/DL (0.1-1.0); BLOOD UREA NITROGEN 19 MG/DL (7-18); BUN/CREATININE RATIO 24.4 (5.4-32.0); CALCIUM 8.4 MG/DL (8.5-10.1); CHLORIDE 110 MMOL/L (99-107); CKMB RELATIVE INDEX 0.3 RATIO (0-2.5); CREATINE KINASE 645 U/L (39-308); CREATININE 0.78 MG/DL (0.60-1.10); GLUCOSE 100 MG/DL (70-104); LIPASE < 50 U/L (73-393); MAGNESIUM 2.1 MG/DL (1.5-2.4); PHOSPHORUS 2.4 MG/DL (2.3-4.5); POTASSIUM 3.4 MMOL/L (3.5-5.1); SODIUM 146 MMOL/L (135-145); TOTAL CARBON DIOXIDE 28.5 MMOL/L (24-32); TOTAL PROTEIN 5.7 G/DL (6.4-8.2); TROPONIN I < 0.04 NG/ML (0.0-0.05); eGFR > 90 ML/MIN
[2020-09-21] MEDS ORDERED: albumin (Human) 5% 250ml 250 ML IV ONE (22:10)
[2020-09-21] MEDS: sodium phosphate inj. 15 MMOL in dextrose 5%-water 250 ML IV PRN (22:57)
[2020-09-22] VITALS (24 sets, daily range): BP systolic 106–165; BP diastolic 62–103
[2020-09-22] MEDS: mineral oil/petrolatum ophthal oint EACHEYE SCH ×11 (01:13→23:20)
[2020-09-22] MEDS ORDERED: furosemide 40mg/4ml inj IV ONE (01:25)
[2020-09-22 02:50] LABS: BASOPHILS % (AUTO) 0.1 % (0-1); EOSINOPHILS % (AUTO) 0.2 % (0-6); HEMATOCRIT 35.9 % (42.0-52.0); HEMOGLOBIN 12.1 g/dl (14.0-17.9); LYMPHOCYTES # (AUTO) 0.3 X10'3 (1.1-4.8); LYMPHOCYTES % (AUTO) 4.7 % (21-51); MEAN CORPUSCULAR HGB CONC 33.8 g/dL (33.0-36.5); MEAN CORPUSCULAR VOLUME 94.7 FL (78-98); MEAN PLATELET VOLUME 6.8 FL (7.4-10.4); MONOCYTES # (AUTO) 0.3 X10'3 (0-0.9); NEUTROPHILS # (AUTO) 6.8 X10'3 (1.8-7.7); PARTIAL THROMBOPLASTIN TIME 30 SECONDS (22-32); PLATELET COUNT 194 X10'3 (140-440); RED BLOOD COUNT 3.79 X10'6 (4.70-6.10); RED CELL DISTRIBUTION WIDTH 13.7 % (11.5-14.5); WHITE BLOOD COUNT 7.4 X10'3 (4.5-11.0)
[2020-09-22 03:13] LABS: ALANINE AMINOTRANSFERASE 36 U/L (12-78); ALBUMIN 2.2 G/DL (3.4-5.0); ALBUMIN/GLOBULIN RATIO 0.5 (1.1-1.5); ALKALINE PHOSPHATASE 69 IU/L (46-116); ANION GAP 9 (8-16); ASPARTATE AMINO TRANSFERASE 67 U/L (10-37); BILIRUBIN,DIRECT 0.3 MG/DL (0-0.3); BILIRUBIN,TOTAL 0.7 MG/DL (0.1-1.0); BLOOD UREA NITROGEN 22 MG/DL (7-18); BUN/CREATININE RATIO 26.2 (5.4-32.0); CALCIUM 8.5 MG/DL (8.5-10.1); CHLORIDE 107 MMOL/L (99-107); CKMB RELATIVE INDEX 0.3 RATIO (0-2.5); CREATINE KINASE 680 U/L (39-308); CREATININE 0.84 MG/DL (0.60-1.10); GLUCOSE 146 MG/DL (70-104); MAGNESIUM 2.2 MG/DL (1.5-2.4); PHOSPHORUS 5.4 MG/DL (2.3-4.5); POTASSIUM 4.2 MMOL/L (3.5-5.1); SODIUM 145 MMOL/L (135-145); TOTAL PROTEIN 6.6 G/DL (6.4-8.2); TROPONIN I < 0.04 NG/ML (0.0-0.05); eGFR > 90 ML/MIN
[2020-09-22] MEDS ORDERED: rocuronium 10mg/ml inj IV ONE (03:15)
[2020-09-22] MEDS: albuterol 2.5 MG/3 ML nebule NEB PRN ×3 (03:15→11:19)
[2020-09-22] MEDS: niCARDipine-NS 40mg/200ml IVPB 200 ML IV SCH ×5 (03:38→20:14)
[2020-09-22 04:09] LABS: CLARITY,URINE CLEAR (Clear); COLOR,URINE STRAW (Yellow); GLUCOSE, URINE NEGATIVE (Neg); KETONES,URINE NEGATIVE (Neg); LEUKOCYTE ESTERASE ,URINE NEGATIVE (Neg); NITRITES, URINE NEGATIVE (Neg); OCCULT BLOOD,URINE TRACE-INTACT (Neg); PROTEIN,URINE NEGATIVE (Neg); UROBILINOGEN,URINE 0.2 E.U/dL (0.2-1.0)
[2020-09-22 04:14] LABS: UA COLLECTION TYPE FOLEY CATH
[2020-09-22 04:16] LABS: BACTERIA,URINE NONE SEEN /HPF (Neg); RBC,URINE 0-2 /HPF (0-2); SQUAMOUS EPITHELIAL CELL,UR NONE SEEN /LPF (FEW); WBC,URINE NONE SEEN /HPF (0-4)
[2020-09-22 04:25] LABS: ABG HCO3 29.3 mmol/L (22.0-26.0); ABG OXYGEN SATURATION 94.2 % (94-97); ABG PCO2 (T) 46.8 mmHg (35.0-48.0); ABG PO2 (T) 71.5 mmHg (75.0-100.0); FMetHb 0.2 % (0.0-1.5); PATIENT TEMPERATURE 37.2; PEEP 5 cm H2O; RESPIRATORY RATE 16 b/min; TIDAL VOLUME 600 mL; TOTAL HEMOGLOBIN 13.9 G/dl (14.0-18.0)
[2020-09-22] MEDS: potassium cl 20mEq in 1/2 NS 1,000 ML IV SCH ×3 (04:38→23:21)
[2020-09-22] MEDS: VANCOMYCIN IV SCH (05:51)
[2020-09-22] MEDS: NORMAL SALINE IV SCH (05:51)
--- NOTE | 2020-09-22 06:13 | NUR ---
Problems reprioritized. Patient report given, questions answered & plan of care reviewed with Elvia SHERIFF.
[2020-09-22] MEDS: levetiracetamNACL 1500mg/100mL 100 ML IV SCH (07:36)
[2020-09-22] MEDS: piperacillin/tazo 4.5gm/100ml 100 ML IV SCH ×2 (07:37→21:09)
[2020-09-22] MEDS: pantoprazole 40 MG vial IV SCH (07:37)
[2020-09-22] MEDS: levoFLOXACIN-Levaquin 500mg/D5 100 ML IV SCH (07:37)
[2020-09-22] MEDS: levoTHYROXINE sod inj. 200 MCG in normal saline 500ml IV soln 490 ML IV SCH (08:00)
[2020-09-22] MEDS: propofol 1000mg/100ml bottle 100 ML IV SCH (08:11)
[2020-09-22 08:15] LABS: BASOPHILS % (AUTO) 0.1 % (0-1); EOSINOPHILS % (AUTO) 0 % (0-6); HEMATOCRIT 40.2 % (42.0-52.0); HEMOGLOBIN 13.5 g/dl (14.0-17.9); LYMPHOCYTES # (AUTO) 0.3 X10'3 (1.1-4.8); LYMPHOCYTES % (AUTO) 4.7 % (21-51); MEAN CORPUSCULAR HEMOGLOBIN 31.6 PG (27.0-31.0); MEAN CORPUSCULAR HGB CONC 33.6 g/dL (33.0-36.5); MEAN PLATELET VOLUME 6.8 FL (7.4-10.4); MONOCYTES # (AUTO) 0.1 X10'3 (0-0.9); MONOCYTES % (AUTO) 1.2 % (2-12); NEUTROPHILS # (AUTO) 6.6 X10'3 (1.8-7.7); PLATELET COUNT 206 X10'3 (140-440); RED BLOOD COUNT 4.28 X10'6 (4.70-6.10); RED CELL DISTRIBUTION WIDTH 14.1 % (11.5-14.5)
[2020-09-22 08:51] LABS: PARTIAL THROMBOPLASTIN TIME 29 SECONDS (22-32)
[2020-09-22 09:14] LABS: ALANINE AMINOTRANSFERASE 39 U/L (12-78); ALBUMIN 2.4 G/DL (3.4-5.0); ALBUMIN/GLOBULIN RATIO 0.5 (1.1-1.5); ALKALINE PHOSPHATASE 76 IU/L (46-116); ANION GAP 12 (8-16); ASPARTATE AMINO TRANSFERASE 60 U/L (10-37); BILIRUBIN,DIRECT 0.2 MG/DL (0-0.3); BILIRUBIN,TOTAL 0.6 MG/DL (0.1-1.0); BLOOD UREA NITROGEN 20 MG/DL (7-18); BUN/CREATININE RATIO 23.3 (5.4-32.0); CALCIUM 8.9 MG/DL (8.5-10.1); CHLORIDE 109 MMOL/L (99-107); CREATINE KINASE 638 U/L (39-308); CREATININE 0.86 MG/DL (0.60-1.10); GLUCOSE 130 MG/DL (70-104); MAGNESIUM 2.5 MG/DL (1.5-2.4); PHOSPHORUS 6.3 MG/DL (2.3-4.5); POTASSIUM 3.8 MMOL/L (3.5-5.1); SODIUM 151 MMOL/L (135-145); TOTAL CARBON DIOXIDE 30.2 MMOL/L (24-32); TOTAL PROTEIN 7.3 G/DL (6.4-8.2); TROPONIN I < 0.04 NG/ML (0.0-0.05); eGFR > 90 ML/MIN
[2020-09-22] MEDS ORDERED: desmopressin 4 MCG/1 ML amp SQ SCH (09:25)
[2020-09-22 09:42] LABS: CKMB RELATIVE INDEX 0.2 RATIO (0-2.5)
[2020-09-22 11:15] LABS: ABG BASE EXCESS 5.6 mmol/L (-2.0-2.0); ABG HCO3 29.5 mmol/L (22.0-26.0); ABG OXYGEN SATURATION 97.9 % (94-97); ABG PO2 (T) 105.7 mmHg (75.0-100.0); FCOHb 0.3 % (0.0-3.9); FMetHb 0.4 % (0.0-1.5); FO2Hb 97.2 % (94-97); PEEP 5 cm H2O; RESPIRATORY RATE 16 b/min; TIDAL VOLUME 600 mL; TOTAL HEMOGLOBIN 14.9 G/dl (14.0-18.0)
[2020-09-22] MEDS: LEVOTHYROXINE 200 MCG IV SCH (11:38)
[2020-09-22] MEDS: SODIUM CHLORIDE IV SCH (11:38)
--- NOTE | 2020-09-22 11:50 | NUR ---
weigh and charge worker called patient's mother to see if former employer Jamil may come see the patient and get information. Mother okay'd and Jamil at bedside.
[2020-09-22] MEDS ORDERED: niCARDipine-NS 40mg/200ml IVPB 200 ML IV SCH (12:34)
[2020-09-22] MEDS: NORepinephrine 8mg/ 250ml NS 250 ML IV SCH (13:15)
[2020-09-22 14:16] LABS: BASOPHILS % (AUTO) 0.2 % (0-1); EOSINOPHILS % (AUTO) 0 % (0-6); HEMATOCRIT 40.1 % (42.0-52.0); HEMOGLOBIN 13.4 g/dl (14.0-17.9); LYMPHOCYTES # (AUTO) 0.4 X10'3 (1.1-4.8); LYMPHOCYTES % (AUTO) 5.4 % (21-51); MEAN CORPUSCULAR HEMOGLOBIN 31.5 PG (27.0-31.0); MEAN CORPUSCULAR HGB CONC 33.3 g/dL (33.0-36.5); MEAN CORPUSCULAR VOLUME 94.5 FL (78-98); MEAN PLATELET VOLUME 6.7 FL (7.4-10.4); MONOCYTES # (AUTO) 0.2 X10'3 (0-0.9); MONOCYTES % (AUTO) 2.8 % (2-12); NEUTROPHILS # (AUTO) 6.4 X10'3 (1.8-7.7); NEUTROPHILS % (AUTO) 91.6 % (42-75); PLATELET COUNT 215 X10'3 (140-440); RED BLOOD COUNT 4.24 X10'6 (4.70-6.10); RED CELL DISTRIBUTION WIDTH 14.1 % (11.5-14.5)
[2020-09-22 14:28] LABS: PARTIAL THROMBOPLASTIN TIME 30 SECONDS (22-32)
[2020-09-22 14:39] LABS: ALANINE AMINOTRANSFERASE 36 U/L (12-78); ALBUMIN 2.4 G/DL (3.4-5.0); ALBUMIN/GLOBULIN RATIO 0.5 (1.1-1.5); ALKALINE PHOSPHATASE 76 IU/L (46-116); ANION GAP 9 (8-16); ASPARTATE AMINO TRANSFERASE 44 U/L (10-37); BILIRUBIN,DIRECT 0.2 MG/DL (0-0.3); BILIRUBIN,TOTAL 0.4 MG/DL (0.1-1.0); BLOOD UREA NITROGEN 23 MG/DL (7-18); CALCIUM 9.3 MG/DL (8.5-10.1); CHLORIDE 112 MMOL/L (99-107); CKMB RELATIVE INDEX 0.3 RATIO (0-2.5); CREATINE KINASE 528 U/L (39-308); CREATININE 0.82 MG/DL (0.60-1.10); GLUCOSE 160 MG/DL (70-104); MAGNESIUM 2.6 MG/DL (1.5-2.4); PHOSPHORUS 5.2 MG/DL (2.3-4.5); POTASSIUM 4.1 MMOL/L (3.5-5.1); SODIUM 152 MMOL/L (135-145); TOTAL CARBON DIOXIDE 30.9 MMOL/L (24-32); TOTAL PROTEIN 7.4 G/DL (6.4-8.2); TROPONIN I < 0.04 NG/ML (0.0-0.05); eGFR > 90 ML/MIN
[2020-09-22] MEDS ORDERED: LIDOcaine 1% (10mg/ml)w/preservative injection 20ml MDV ONE (15:15)
[2020-09-22] MEDS ORDERED: iohexol 350MG/ML 100ml bottle IV ONE (15:15)
[2020-09-22] MEDS ORDERED: heparin 1,000unit/ml 10ml vial 10 ML ONE (15:15)
[2020-09-22] MEDS ORDERED: iohexol 350 MG/ML 50ML vial IV ONE (15:15)
[2020-09-22 18:15] LABS: ISTAT HGB ART 13.3 g/dl (14.0-18.0); ISTAT Hct ART 39 %PCV (42-52); ISTAT O2 SATURATION ARTERIAL 97 % (95-98); ISTAT SOURCE ART
[2020-09-22] MEDS: vasopressin inj. 40 UNIT in normal saline 50ml IV soln 38 ML IV SCH (18:29)
--- NOTE | 2020-09-22 18:30 | NUR ---
Patient here from laborer general into room ICU 2044. I have received report from Dano SHERIFF and had the opportunity to ask questions and assume patient care. Addendum: 09/22/20 at 2123 by Mavis Riley RN Amended: Links added.
--- NOTE | 2020-09-22 19:30 | NUR ---
Patient's core temp noted at 33.8 upon connection of cardiac output transducer. Correlating with esophageal temp probe. Warming blankets applied, thermostat turned on on ventilator and turned up in room.
[2020-09-22 21:09] LABS: BASOPHILS % (AUTO) 0.1 % (0-1); EOSINOPHILS % (AUTO) 0 % (0-6); HEMATOCRIT 37.1 % (42.0-52.0); HEMOGLOBIN 12.5 g/dl (14.0-17.9); LYMPHOCYTES # (AUTO) 0.6 X10'3 (1.1-4.8); LYMPHOCYTES % (AUTO) 8.6 % (21-51); MEAN CORPUSCULAR HGB CONC 33.8 g/dL (33.0-36.5); MEAN CORPUSCULAR VOLUME 94.6 FL (78-98); MEAN PLATELET VOLUME 6.9 FL (7.4-10.4); MONOCYTES # (AUTO) 0.3 X10'3 (0-0.9); MONOCYTES % (AUTO) 4.8 % (2-12); NEUTROPHILS # (AUTO) 5.8 X10'3 (1.8-7.7); NEUTROPHILS % (AUTO) 86.5 % (42-75); PLATELET COUNT 201 X10'3 (140-440); RED BLOOD COUNT 3.92 X10'6 (4.70-6.10); RED CELL DISTRIBUTION WIDTH 14.1 % (11.5-14.5); WHITE BLOOD COUNT 6.7 X10'3 (4.5-11.0)
[2020-09-22 21:17] LABS: PARTIAL THROMBOPLASTIN TIME 31 SECONDS (22-32)
[2020-09-22 21:31] LABS: ALANINE AMINOTRANSFERASE 33 U/L (12-78); ALBUMIN 2.2 G/DL (3.4-5.0); ALBUMIN/GLOBULIN RATIO 0.5 (1.1-1.5); ALKALINE PHOSPHATASE 66 IU/L (46-116); ANION GAP 9 (8-16); ASPARTATE AMINO TRANSFERASE 42 U/L (10-37); BILIRUBIN,DIRECT 0.2 MG/DL (0-0.3); BILIRUBIN,TOTAL 0.4 MG/DL (0.1-1.0); BLOOD UREA NITROGEN 26 MG/DL (7-18); BUN/CREATININE RATIO 33.3 (5.4-32.0); CALCIUM 9.1 MG/DL (8.5-10.1); CHLORIDE 111 MMOL/L (99-107); CKMB RELATIVE INDEX 0.3 RATIO (0-2.5); CREATINE KINASE 418 U/L (39-308); CREATININE 0.78 MG/DL (0.60-1.10); GLUCOSE 180 MG/DL (70-104); MAGNESIUM 2.8 MG/DL (1.5-2.4); PHOSPHORUS 3.4 MG/DL (2.3-4.5); POTASSIUM 3.9 MMOL/L (3.5-5.1); SODIUM 149 MMOL/L (135-145); TOTAL CARBON DIOXIDE 29.3 MMOL/L (24-32); TOTAL PROTEIN 6.9 G/DL (6.4-8.2); TROPONIN I < 0.04 NG/ML (0.0-0.05); eGFR > 90 ML/MIN
--- NOTE | 2020-09-22 21:35 | NUR ---
Femoral sheath in R humberto, HOB 10 degrees, Reverse Trendelenburg Addendum: 09/22/20 at 2136 by Mavis Riley RN Amended: Links added.
[2020-09-22] MEDS: WATER IV SCH (22:21)
[2020-09-22] MEDS: DEXTROSE 5% IV SCH (22:21)
[2020-09-22] MEDS: METHYLPREDNISOLONE SOD SUCC IV SCH (22:21)
[2020-09-23] VITALS (24 sets, daily range): BP systolic 115–148; BP diastolic 59–79
[2020-09-23] MEDS: niCARDipine-NS 40mg/200ml IVPB 200 ML IV SCH ×7 (00:26→20:59)
--- NOTE | 2020-09-23 01:24 | NUR ---
Titrating Vasopressin as tolerated. Urine output 75-100mL/hr. Will continue to monitor closely.
[2020-09-23] MEDS: mineral oil/petrolatum ophthal oint EACHEYE SCH ×12 (01:26→23:41)
--- NOTE | 2020-09-23 02:15 | NUR ---
Temp normalized. Warming blanket off
[2020-09-23 02:54] LABS: BASOPHILS % (AUTO) 0.1 % (0-1); EOSINOPHILS % (AUTO) 0 % (0-6); HEMATOCRIT 39.5 % (42.0-52.0); HEMOGLOBIN 13.1 g/dl (14.0-17.9); LYMPHOCYTES # (AUTO) 0.6 X10'3 (1.1-4.8); LYMPHOCYTES % (AUTO) 6.4 % (21-51); MEAN CORPUSCULAR HEMOGLOBIN 31.4 PG (27.0-31.0); MEAN CORPUSCULAR HGB CONC 33.1 g/dL (33.0-36.5); MEAN CORPUSCULAR VOLUME 94.9 FL (78-98); MEAN PLATELET VOLUME 7.1 FL (7.4-10.4); MONOCYTES # (AUTO) 0.5 X10'3 (0-0.9); MONOCYTES % (AUTO) 5.8 % (2-12); NEUTROPHILS # (AUTO) 8.2 X10'3 (1.8-7.7); NEUTROPHILS % (AUTO) 87.7 % (42-75); PLATELET COUNT 238 X10'3 (140-440); RED BLOOD COUNT 4.16 X10'6 (4.70-6.10); RED CELL DISTRIBUTION WIDTH 14.1 % (11.5-14.5); WHITE BLOOD COUNT 9.3 X10'3 (4.5-11.0)
[2020-09-23] MEDS ORDERED: ringers solution, lacted 1,000 ML IV ONE ×5 (03:00→19:55)
[2020-09-23 03:02] LABS: PARTIAL THROMBOPLASTIN TIME 26 SECONDS (22-32)
[2020-09-23 03:29] LABS: ABG BASE EXCESS 5.4 mmol/L (-2.0-2.0); ABG HCO3 31.5 mmol/L (22.0-26.0); ABG OXYGEN SATURATION 94.2 % (94-97); ABG PCO2 (T) 53.4 mmHg (35.0-48.0); ABG PO2 (T) 74.6 mmHg (75.0-100.0); FCOHb 0.3 % (0.0-3.9); FMetHb 0.4 % (0.0-1.5); FO2Hb 93.5 % (94-97); PATIENT TEMPERATURE 37.4; PEEP 5 cm H2O; RESPIRATORY RATE 16 b/min; TIDAL VOLUME 550 mL; TOTAL HEMOGLOBIN 13.4 G/dl (14.0-18.0)
[2020-09-23 03:30] LABS: ALANINE AMINOTRANSFERASE 33 U/L (12-78); ALBUMIN 2.4 G/DL (3.4-5.0); ALBUMIN/GLOBULIN RATIO 0.5 (1.1-1.5); ALKALINE PHOSPHATASE 76 IU/L (46-116); ANION GAP 9 (8-16); ASPARTATE AMINO TRANSFERASE 35 U/L (10-37); BILIRUBIN,DIRECT 0.2 MG/DL (0-0.3); BILIRUBIN,TOTAL 0.5 MG/DL (0.1-1.0); BLOOD UREA NITROGEN 27 MG/DL (7-18); BUN/CREATININE RATIO 31.8 (5.4-32.0); CALCIUM 9.4 MG/DL (8.5-10.1); CHLORIDE 109 MMOL/L (99-107); CKMB RELATIVE INDEX 0.3 RATIO (0-2.5); CREATINE KINASE 372 U/L (39-308); CREATININE 0.85 MG/DL (0.60-1.10); GLUCOSE 168 MG/DL (70-104); MAGNESIUM 2.6 MG/DL (1.5-2.4); POTASSIUM 3.9 MMOL/L (3.5-5.1); SODIUM 148 MMOL/L (135-145); TOTAL CARBON DIOXIDE 29.6 MMOL/L (24-32); TOTAL PROTEIN 7.1 G/DL (6.4-8.2); TROPONIN I < 0.04 NG/ML (0.0-0.05); eGFR > 90 ML/MIN
[2020-09-23] MEDS: phenylephrine inj 50 MG in normal saline 250ml IV soln 250 ML IV SCH ×2 (04:31→21:54)
[2020-09-23] MEDS: NORepinephrine 8mg/ 250ml NS 250 ML IV SCH ×2 (05:33→21:51)
[2020-09-23] MEDS: VANCOMYCIN IV SCH (05:36)
[2020-09-23] MEDS: NORMAL SALINE IV SCH (05:36)
--- NOTE | 2020-09-23 06:08 | NUR ---
Problems reprioritized. Patient report given, questions answered & plan of care reviewed with Dano SHERIFF.
--- NOTE | 2020-09-23 06:30 | NUR ---
Patient in room ICU 2044. I have received report from Mavis SHERIFF and had the opportunity to ask questions and assume patient care.
[2020-09-23] MEDS: piperacillin/tazo 4.5gm/100ml 100 ML IV SCH ×2 (07:04→19:58)
[2020-09-23] MEDS: pantoprazole 40 MG vial IV SCH (07:04)
[2020-09-23] MEDS: levoFLOXACIN-Levaquin 500mg/D5 100 ML IV SCH (07:04)
[2020-09-23] MEDS: SODIUM CHLORIDE IV SCH (07:31)
[2020-09-23] MEDS: LEVOTHYROXINE 200 MCG IV SCH (07:31)
[2020-09-23 08:06] LABS: BASOPHILS % (AUTO) 0.1 % (0-1); EOSINOPHILS % (AUTO) 0 % (0-6); HEMATOCRIT 37.7 % (42.0-52.0); HEMOGLOBIN 12.6 g/dl (14.0-17.9); LYMPHOCYTES # (AUTO) 0.6 X10'3 (1.1-4.8); LYMPHOCYTES % (AUTO) 5.7 % (21-51); MEAN CORPUSCULAR HEMOGLOBIN 31.4 PG (27.0-31.0); MEAN CORPUSCULAR HGB CONC 33.5 g/dL (33.0-36.5); MEAN PLATELET VOLUME 6.8 FL (7.4-10.4); MONOCYTES # (AUTO) 0.4 X10'3 (0-0.9); MONOCYTES % (AUTO) 3.7 % (2-12); NEUTROPHILS # (AUTO) 8.9 X10'3 (1.8-7.7); NEUTROPHILS % (AUTO) 90.5 % (42-75); PLATELET COUNT 229 X10'3 (140-440); RED BLOOD COUNT 4.01 X10'6 (4.70-6.10); WHITE BLOOD COUNT 9.9 X10'3 (4.5-11.0)
[2020-09-23 08:41] LABS: CLARITY,URINE CLEAR (Clear); COLOR,URINE STRAW (Yellow); GLUCOSE, URINE 500 mg/dl (Neg); KETONES,URINE NEGATIVE (Neg); LEUKOCYTE ESTERASE ,URINE NEGATIVE (Neg); NITRITES, URINE NEGATIVE (Neg); OCCULT BLOOD,URINE NEGATIVE (Neg); PH,URINE 5.5 (4.8-8.0); PROTEIN,URINE NEGATIVE (Neg); UROBILINOGEN,URINE 0.2 E.U/dL (0.2-1.0)
[2020-09-23 08:41] LABS: ALANINE AMINOTRANSFERASE 34 U/L (12-78); ALBUMIN 2.3 G/DL (3.4-5.0); ALBUMIN/GLOBULIN RATIO 0.5 (1.1-1.5); ALKALINE PHOSPHATASE 80 IU/L (46-116); ANION GAP 8 (8-16); ASPARTATE AMINO TRANSFERASE 31 U/L (10-37); BILIRUBIN,DIRECT 0.2 MG/DL (0-0.3); BILIRUBIN,TOTAL 0.3 MG/DL (0.1-1.0); BLOOD UREA NITROGEN 24 MG/DL (7-18); BUN/CREATININE RATIO 27.3 (5.4-32.0); CALCIUM 9.1 MG/DL (8.5-10.1); CHLORIDE 111 MMOL/L (99-107); CKMB RELATIVE INDEX 0.5 RATIO (0-2.5); CREATINE KINASE 303 U/L (39-308); CREATININE 0.88 MG/DL (0.60-1.10); GLUCOSE 189 MG/DL (70-104); MAGNESIUM 2.2 MG/DL (1.5-2.4); PARTIAL THROMBOPLASTIN TIME 26 SECONDS (22-32); PHOSPHORUS 2.6 MG/DL (2.3-4.5); POTASSIUM 4.2 MMOL/L (3.5-5.1); SODIUM 149 MMOL/L (135-145); TOTAL CARBON DIOXIDE 30.2 MMOL/L (24-32); TRIGLYCERIDES 109 MG/DL (20-135); TROPONIN I < 0.04 NG/ML (0.0-0.05); eGFR > 90 ML/MIN
[2020-09-23 08:46] LABS: UA COLLECTION TYPE FOLEY CATH
[2020-09-23] MEDS ORDERED: albumin (human) 25% 100 ML IV solution IV ONE (10:35)
[2020-09-23] MEDS: potassium cl 20mEq in 1/2 NS 1,000 ML IV SCH ×2 (10:54→20:24)
[2020-09-23] MEDS ORDERED: desmopressin 4 MCG/1 ML amp SQ STA (13:49)
[2020-09-23] MEDS ORDERED: WATER IV ONE (14:30)
[2020-09-23] MEDS ORDERED: DEXTROSE 5% IV ONE (14:30)
[2020-09-23 14:34] LABS: BASOPHILS % (AUTO) 0.1 % (0-1); EOSINOPHILS % (AUTO) 0 % (0-6); HEMATOCRIT 37.8 % (42.0-52.0); HEMOGLOBIN 12.6 g/dl (14.0-17.9); LYMPHOCYTES # (AUTO) 0.6 X10'3 (1.1-4.8); LYMPHOCYTES % (AUTO) 6.3 % (21-51); MEAN CORPUSCULAR HEMOGLOBIN 31.4 PG (27.0-31.0); MEAN CORPUSCULAR HGB CONC 33.2 g/dL (33.0-36.5); MEAN CORPUSCULAR VOLUME 94.6 FL (78-98); MONOCYTES # (AUTO) 0.5 X10'3 (0-0.9); MONOCYTES % (AUTO) 4.7 % (2-12); NEUTROPHILS # (AUTO) 8.7 X10'3 (1.8-7.7); NEUTROPHILS % (AUTO) 88.9 % (42-75); PLATELET COUNT 214 X10'3 (140-440); RED CELL DISTRIBUTION WIDTH 14.1 % (11.5-14.5); WHITE BLOOD COUNT 9.8 X10'3 (4.5-11.0)
[2020-09-23 14:35] LABS: CLARITY,URINE CLEAR (Clear); COLOR,URINE STRAW (Yellow); GLUCOSE, URINE NEGATIVE (Neg); KETONES,URINE NEGATIVE (Neg); LEUKOCYTE ESTERASE ,URINE NEGATIVE (Neg); NITRITES, URINE NEGATIVE (Neg); OCCULT BLOOD,URINE TRACE-LYSED (Neg); PROTEIN,URINE NEGATIVE (Neg); UROBILINOGEN,URINE 0.2 E.U/dL (0.2-1.0)
[2020-09-23 14:40] LABS: UA COLLECTION TYPE FOLEY CATH
[2020-09-23 14:41] LABS: BACTERIA,URINE NONE SEEN /HPF (Neg); MUCUS STRANDS FEW /LPF (Neg); RBC,URINE 0-2 /HPF (0-2); WBC,URINE 0-4 /HPF (0-4)
[2020-09-23 14:42] LABS: RENAL CELLS, URINE FEW /HPF; SQUAMOUS EPITHELIAL CELL,UR NONE SEEN /LPF (FEW)
[2020-09-23 14:46] LABS: PARTIAL THROMBOPLASTIN TIME 26 SECONDS (22-32)
[2020-09-23 15:00] LABS: ALANINE AMINOTRANSFERASE 29 U/L (12-78); ALBUMIN 2.5 G/DL (3.4-5.0); ALBUMIN/GLOBULIN RATIO 0.6 (1.1-1.5); ALKALINE PHOSPHATASE 79 IU/L (46-116); ANION GAP 6 (8-16); ASPARTATE AMINO TRANSFERASE 30 U/L (10-37); BILIRUBIN,DIRECT 0.2 MG/DL (0-0.3); BILIRUBIN,TOTAL 0.4 MG/DL (0.1-1.0); BLOOD UREA NITROGEN 20 MG/DL (7-18); CALCIUM 8.9 MG/DL (8.5-10.1); CHLORIDE 110 MMOL/L (99-107); CKMB RELATIVE INDEX 0.3 RATIO (0-2.5); CREATINE KINASE 261 U/L (39-308); CREATININE 0.87 MG/DL (0.60-1.10); GLUCOSE 190 MG/DL (70-104); MAGNESIUM 2.3 MG/DL (1.5-2.4); PHOSPHORUS 2.7 MG/DL (2.3-4.5); POTASSIUM 3.9 MMOL/L (3.5-5.1); SODIUM 149 MMOL/L (135-145); TOTAL CARBON DIOXIDE 32.7 MMOL/L (24-32); TOTAL PROTEIN 6.9 G/DL (6.4-8.2); TROPONIN I 0.04 NG/ML (0.0-0.05); eGFR > 90 ML/MIN
[2020-09-23] MEDS ORDERED: potassium Cl 20 mEq/100mL bag IV ONE (15:10)
[2020-09-23] MEDS ORDERED: desmopressin 4 MCG/1 ML amp SQ ONE (15:45)
[2020-09-23 16:05] LABS: ABG BASE EXCESS 4.2 mmol/L (-2.0-2.0); ABG HCO3 29.2 mmol/L (22.0-26.0); ABG OXYGEN SATURATION 98.1 % (94-97); ABG PCO2 (T) 45.3 mmHg (35.0-48.0); ABG PO2 (T) 122.1 mmHg (75.0-100.0); FCOHb 0.3 % (0.0-3.9); FMetHb 0.4 % (0.0-1.5); FO2Hb 97.4 % (94-97); PEEP 5 cm H2O; RESPIRATORY RATE 16 b/min; TIDAL VOLUME 550 mL
[2020-09-23] MEDS ORDERED: VANCOMYCIN LEVEL IV ONE (17:30)
[2020-09-23] MEDS ORDERED: rocuronium 10mg/ml inj IV ONE ×2 (17:40→20:10)
[2020-09-23] MEDS ORDERED: desmopressin 4 MCG/1 ML amp SQ PRN (18:25)
--- NOTE | 2020-09-23 18:30 | NUR ---
Patient in room ICU 2044. I have received report from Dano SHERIFF and had the opportunity to ask questions and assume patient care. Addendum: 09/23/20 at 2032 by Mavis Riley RN Amended: Links added.
[2020-09-23 18:46] LABS: ALANINE AMINOTRANSFERASE 32 U/L (12-78); ALBUMIN 2.6 G/DL (3.4-5.0); ALBUMIN/GLOBULIN RATIO 0.6 (1.1-1.5); ALKALINE PHOSPHATASE 84 IU/L (46-116); ANION GAP 7 (8-16); ASPARTATE AMINO TRANSFERASE 31 U/L (10-37); BILIRUBIN,DIRECT 0.1 MG/DL (0-0.3); BILIRUBIN,TOTAL 0.4 MG/DL (0.1-1.0); BLOOD UREA NITROGEN 21 MG/DL (7-18); BUN/CREATININE RATIO 27.3 (5.4-32.0); CALCIUM 9.1 MG/DL (8.5-10.1); CHLORIDE 109 MMOL/L (99-107); CKMB RELATIVE INDEX 0.5 RATIO (0-2.5); CREATINE KINASE 249 U/L (39-308); CREATININE 0.77 MG/DL (0.60-1.10); GLUCOSE 193 MG/DL (70-104); MAGNESIUM 2.3 MG/DL (1.5-2.4); PHOSPHORUS 1.9 MG/DL (2.3-4.5); POTASSIUM 3.8 MMOL/L (3.5-5.1); SODIUM 148 MMOL/L (135-145); TOTAL CARBON DIOXIDE 31.9 MMOL/L (24-32); TOTAL PROTEIN 7.3 G/DL (6.4-8.2); TROPONIN I < 0.04 NG/ML (0.0-0.05); eGFR > 90 ML/MIN
[2020-09-23] MEDS ORDERED: potassium Cl 10 mEq/100mL bag IV ONE (19:00)
--- NOTE | 2020-09-23 20:40 | NUR ---
Femoral sheath in R humberto HOB 10 degrees. Reverse Trendelenburg. Addendum: 09/23/20 at 2041 by Mavis Riley RN Amended: Links added.
[2020-09-23] MEDS ORDERED: NORMAL SALINE IV SCH (22:25)
[2020-09-23] MEDS ORDERED: VANCOMYCIN IV SCH (22:25)
[2020-09-23] MEDS ORDERED: NORMAL SALINE IV ONE (22:34)
[2020-09-23] MEDS ORDERED: VANCOMYCIN IV ONE (22:34)
[2020-09-23 23:36] LABS: BASOPHILS % (AUTO) 0.1 % (0-1); CLARITY,URINE CLEAR (Clear); COLOR,URINE YELLOW (Yellow); EOSINOPHILS % (AUTO) 0 % (0-6); GLUCOSE, URINE NEGATIVE (Neg); HEMATOCRIT 38.6 % (42.0-52.0); HEMOGLOBIN 12.7 g/dl (14.0-17.9); KETONES,URINE NEGATIVE (Neg); LEUKOCYTE ESTERASE ,URINE NEGATIVE (Neg); LYMPHOCYTES # (AUTO) 0.6 X10'3 (1.1-4.8); LYMPHOCYTES % (AUTO) 5.4 % (21-51); MEAN CORPUSCULAR HEMOGLOBIN 31.3 PG (27.0-31.0); MEAN CORPUSCULAR HGB CONC 32.8 g/dL (33.0-36.5); MEAN CORPUSCULAR VOLUME 95.3 FL (78-98); MONOCYTES # (AUTO) 0.6 X10'3 (0-0.9); NEUTROPHILS % (AUTO) 88.5 % (42-75); NITRITES, URINE NEGATIVE (Neg); OCCULT BLOOD,URINE MODERATE (Neg); PH,URINE 5.5 (4.8-8.0); PLATELET COUNT 229 X10'3 (140-440); PROTEIN,URINE NEGATIVE (Neg); RED BLOOD COUNT 4.05 X10'6 (4.70-6.10); RED CELL DISTRIBUTION WIDTH 13.9 % (11.5-14.5); UROBILINOGEN,URINE 0.2 E.U/dL (0.2-1.0); WHITE BLOOD COUNT 10.1 X10'3 (4.5-11.0)
[2020-09-23 23:41] LABS: PARTIAL THROMBOPLASTIN TIME 24 SECONDS (22-32)
[2020-09-23] MEDS: WATER IV SCH (23:41)
[2020-09-23] MEDS: DEXTROSE 5% IV SCH (23:41)
[2020-09-23] MEDS: METHYLPREDNISOLONE SOD SUCC IV SCH (23:41)
[2020-09-23 23:54] LABS: ALANINE AMINOTRANSFERASE 26 U/L (12-78); ALKALINE PHOSPHATASE 80 IU/L (46-116); ANION GAP 6 (8-16); ASPARTATE AMINO TRANSFERASE 30 U/L (10-37); BILIRUBIN,DIRECT 0.1 MG/DL (0-0.3); BILIRUBIN,TOTAL 0.4 MG/DL (0.1-1.0); CHLORIDE 111 MMOL/L (99-107); CKMB RELATIVE INDEX 0.4 RATIO (0-2.5); CREATINE KINASE 189 U/L (39-308); PHOSPHORUS 1.6 MG/DL (2.3-4.5); SODIUM 147 MMOL/L (135-145); TOTAL CARBON DIOXIDE 30.5 MMOL/L (24-32); TOTAL PROTEIN 6.6 G/DL (6.4-8.2); TROPONIN I 0.09 NG/ML (0.0-0.05)
[2020-09-24] VITALS: BP 108/59
[2020-09-24 00:02] LABS: ALBUMIN 2.4 G/DL (3.4-5.0); ALBUMIN/GLOBULIN RATIO 0.6 (1.1-1.5); BLOOD UREA NITROGEN 21 MG/DL (7-18); BUN/CREATININE RATIO 25.3 (5.4-32.0); CALCIUM 8.8 MG/DL (8.5-10.1); CREATININE 0.83 MG/DL (0.60-1.10); GLUCOSE 178 MG/DL (70-104); eGFR > 90 ML/MIN
[2020-09-24 00:12] LABS: MAGNESIUM 2.1 MG/DL (1.5-2.4)
[2020-09-24 00:32] LABS: UA COLLECTION TYPE FOLEY CATH
[2020-09-24 00:38] LABS: BACTERIA,URINE NONE SEEN /HPF (Neg); MUCUS STRANDS MODERATE /LPF (Neg); SQUAMOUS EPITHELIAL CELL,UR FEW /LPF (FEW); WBC,URINE 0-4 /HPF (0-4)
--- NOTE | 2020-09-24 00:40 | NUR ---
Patient hypotensive, Cardene off, Vasopressin restarted. 500mL LR bolus given.
[2020-09-24] MEDS: propofol 1000mg/100ml bottle 100 ML IV SCH (00:56)
[2020-09-24 01:00] VITALS: BP 116/64
[2020-09-24] MEDS: mineral oil/petrolatum ophthal oint EACHEYE SCH (01:04)
[2020-09-24] MEDS: niCARDipine-NS 40mg/200ml IVPB 200 ML IV SCH (01:46)
[2020-09-24 02:00] VITALS: BP 145/77
--- NOTE | 2020-09-24 02:36 | NUR ---
Patient's mother at bedside. Vasopressin off. Titrating Cardene per Md order.
[2020-09-24 02:38] VITALS: BP 131/69
[2020-09-24] MEDS ORDERED: rocuronium 10mg/ml inj IV ONE ×3 (02:56→02:57)
[2020-09-24] MEDS ORDERED: fentaNYL /PF 50mcg/ml 5ml ampule ONE (02:57)
--- NOTE | 2020-09-24 03:30 | NUR ---
Patient to OR with OR crew and patient's mother. Belongings sent home with family.
[2020-09-24] MEDS ORDERED: albumin (Human) 5% 250ml 250 ML IV ONE (04:49)
[2020-09-24] MEDS ORDERED: albumin (Human) 5% 250ml 750 ML IV ONE (05:49)
== END 2020-09-24 03:30 | disposition expired | DRG 207 ==
LOC: EDBD 08:06 → ER 08:06 → ED HOLD 09:23 → EDBEDREQ 10:23 → ICU 2S 12:05
PROVIDERS: ADMIT Internal Medicine Critical Care Medicine; ATTEND Internal Medicine Critical Care Medicine
PROC: 5A1955Z Respiratory Ventilation, Greater than 96 Consecutive Hours (ICD-10-PCS; principal; 2020-09-16)
PROC: 0BH17EZ Insertion of Endotracheal Airway into Trachea, Via Natural or Artificial Opening (ICD-10-PCS; 2020-09-16)
PROC: 02HV33Z Insertion of Infusion Device into Superior Vena Cava, Percutaneous Approach (ICD-10-PCS; 2020-09-16)
PROC: 4A10X4Z Monitoring of Central Nervous Electrical Activity, External Approach (ICD-10-PCS; 2020-09-17)
PROC: 4A10X4Z Monitoring of Central Nervous Electrical Activity, External Approach (ICD-10-PCS; 2020-09-18)
PROC: 4A10X4Z Monitoring of Central Nervous Electrical Activity, External Approach (ICD-10-PCS; 2020-09-19)
PROC: 4A10X4Z Monitoring of Central Nervous Electrical Activity, External Approach (ICD-10-PCS; 2020-09-20)
PROC: 4A023N8 Measurement of Cardiac Sampling and Pressure, Bilateral, Percutaneous Approach (ICD-10-PCS; 2020-09-22)
PROC: B2111ZZ Fluoroscopy of Multiple Coronary Arteries using Low Osmolar Contrast (ICD-10-PCS; 2020-09-22)
PROC: B2151ZZ Fluoroscopy of Left Heart using Low Osmolar Contrast (ICD-10-PCS; 2020-09-22)
DX: J96.01 Acute respiratory failure with hypoxia (principal); J69.0 Pneumonitis due to inhalation of food and vomit; G93.6 Cerebral edema; G93.1 Anoxic brain damage, not elsewhere classified; N17.9 Acute kidney failure, unspecified; E87.0 Hyperosmolality and hypernatremia; R57.9 Shock, unspecified; F15.10 Other stimulant abuse, uncomplicated; F20.9 Schizophrenia, unspecified; E10.65 Type 1 diabetes mellitus with hyperglycemia; E83.39 Other disorders of phosphorus metabolism; Z20.822 Contact with and (suspected) exposure to COVID-19; G40.901 Epilepsy, unspecified, not intractable, with status epilepticus; I46.9 Cardiac arrest, cause unspecified
CPT/HCPCS: 31500; 36415; 36556; 36600; 70450; 71045; 71250; 74176; 76700; 80048; 80053; 80076; 80185; 80202; 80305; 81001; 81003; 82150; 82248; 82330; 82550; 82553; 82803; 82810; 82948; 83036; 83605; 83690; 83735; 83880; 83935; 84100; 84132; 84134; 84145; 84295; 84439; 84443; 84478; 84484; 85007; 85014; 85018; 85025; 85610; 85730; 86885; 86900; 86901; 87040; 87070; 87077; 87186; 87635; 93005; 93306; 93308; 93460; 94002; 94003; 94640; 94760; 94799; 95720; 96365; 99291; 99292; A4618; A6258; C1751; C1769; C1894; C9113; G0378; J1165; J1450; J1644; J1940; J1953; J1956; J2001; J2060; J2150; J2175; J2370; J2543; J2597; J2704; J2930; J3010; J3370; J3480; J3490; J7030; J7040; J7050; J7060; J7120; P9045; P9047; Q9967